=== PATIENT | female | born 1965 | race Caucasian/White ===

== ENCOUNTER 2016-11-26 20:16 | Emergency (ER) | payer MEDICAID ==
[2016-11-26] MEDS ORDERED: AZITHROMYCIN 500 MG TABLET PO ONE (20:35)
[2016-11-26] MEDS ORDERED: PREDNISONE 20 MG TAB PO ONE (20:35)
[2016-11-26] MEDS ORDERED: BENZONATATE 100 MG CAPSULE PO ONE (20:35)
--- NOTE | 2016-11-26 20:42 | Emergency Department Record ---
History of Present Illness - General Chief Complaint: Cough Stated Complaint: COUGH Time Seen by Provider: 11/26/16 20:35 Source: Patient Mode of Arrival: Ambulatory Limitations: No limitations - History of Present Illness Initial Comments: 51 yo female presents with cough and congestion for about 3 weeks. It has been more consistent the last week. She has productive sputum mostly in the mornings. She is a smoker. She has had to use her inhaler more the last week. No NVD. She had a flu shot. PCP is Dr Newman. Complaint: Cough, Nasal congestion Onset/Timin -: Week(s) Quality: Aching Consistency: Constant Improves With: Nothing Worsens With: Other (cough) Context: Sick contacts Associated Symptoms: Cough Treatments Prior to Arrival: Other (Albuterol) - Related Data Previous Rx's Medication Instructions Recorded Azithromycin [Zithromax] 250 mg PO DAILY #4 tab 11/26/16 Benzonatate [Tessalon] 1 cap PO Q8H PRN #20 cap 11/26/16 Prednisone [Prednisone 20Mg] 20 mg PO BID #10 tab 11/26/16 Allergies Allergy/AdvReac Type Severity Reaction Status Date / Time No Known Drug Allergies Allergy Unverified 10/24/16 08:14 Travel Screening - Travel/Exposure Within Last 30 Days Have you traveled within the last 30 days?: No - Travel/Exposure Within Last Year Have you traveled outside the [place] in the last year?: No - Additonal Travel Details Have you been exposed to anyone with a communicable illness?: No - Travel Symptoms Symptom Screening: None Review of Systems Constitutional: Denies: Chills, Fever, Malaise, Weakness Eyes: Denies: Eye discharge ENT: Reports: Congestion Respiratory: Reports: Cough, Wheezes Cardiovascular: Denies: Chest pain, Palpitations, Syncope Endocrine: Denies: Fatigue Gastrointestinal: Denies: Abdominal pain, Diarrhea, Nausea, Vomiting Genitourinary: Denies: Dysuria, Urgency Musculoskeletal: Denies: Arthralgia, Back pain, Myalgia, Neck pain Skin: Denies: Bruising, Change in color, Rash Neurological: Denies: Headache, Weakness Psychiatric: Denies: Anxiety Hematological/Lymphatic: Denies: Easy bleeding, Easy bruising, Swollen glands Past Medical History - SOCIAL HISTORY Smoking Status: Current every day smoker Alcohol Use: None Drug Use: None - RESPIRATORY Hx Respiratory Disorders: Yes Hx Bronchitis: Yes - CARDIOVASCULAR Hx Cardio Disorders: Yes Hx Hypertension: Yes - NEURO Hx Neuro Disorders: Yes Hx Neuropathy: Yes - GI Hx GI Disorders: No - Hx Genitourinary Disorders: No - ENDOCRINE Hx Endocrine Disorders: Yes Hx Diabetes: Yes - MUSCULOSKELETAL Hx Musculoskeletal Disorders: Yes Hx Osteoporosis: Yes - PSYCH Hx Psych Problems: Yes Hx Anxiety: Yes - HEMATOLOGY/ONCOLOGY Hx Hematology/Oncology Disorders: No Family Medical History Any Significant Family History?: No Hx Diabetes: Grandparents Hx Heart Disease: Father, Grandparents Physical Exam - General General Appearance: Alert, Oriented x3, Cooperative, No acute distress Limitations: No limitations - Head Head exam: Normal inspection - Eye Eye exam: Normal appearance, PERRL. negative: Conjunctival injection - ENT ENT exam: Normal exam, Mucous membranes moist Ear exam: Normal external inspection Nasal Exam: Normal inspection. negative: Discharge, Sinus tenderness Mouth exam: Normal external inspection, Tongue normal Teeth exam: Normal inspection. negative: Dental caries Throat exam: Tonsillar erythema. negative: Tonsillomegaly, Tonsillar exudate, R peritonsillar mass, L peritonsillar mass - Neck Neck exam: Normal inspection, Full ROM. negative: Lymphadenopathy, Tenderness - Respiratory Respiratory exam: Rhonchi, Other (Frequent cough). negative: Normal lung sounds bilaterally, Decreased breath sounds, Prolonged expiratory - Cardiovascular Cardiovascular Exam: Regular rate, Normal rhythm, Normal heart sounds Peripheral Pulses: 2+: Radial (R), Radial (L) - GI/Abdominal GI/Abdominal exam: Soft - Rectal Rectal exam: Deferred - exam: Deferred - Extremities Extremities exam: Normal inspection, Full ROM, Normal capillary refill. negative: Pedal edema, Tenderness - Back Back exam: Reports: Normal inspection, Full ROM. Denies: CVA tenderness (R), CVA tenderness (L), Muscle spasm, Rash noted, Tenderness - Neurological Neurological exam: Alert, Normal gait, Oriented X3 - Psychiatric Psychiatric exam: Normal affect, Normal mood. negative: Agitated, Anxious - Skin Skin exam: Dry, Intact, Normal color, Warm Course Vital Signs 11/26/16 20:22 Temperature 97.8 F Pulse Rate [ 115 H Pulse Ox Probe] Respiratory 18 Rate Blood Pressure 165/90 [Left Arm] Pulse Ox 96 - Reevaluation(s) Reevaluation #1: The patient was seen and examined She has a frequent cough with sputum Given she is a smoker with some RAD Prednisone, Zithromax and Tessalon ordered She is in no distress and appears comfortable except for coughing fits occasionally 11/26/16 20:39 11/26/16 20:40 Disposition Disposition: Discharge Clinical Impression: Bronchitis Disposition: Home, Self-Care Condition: (1) Good Instructions: Acute Bronchitis (ED) Additional Instructions: Call your doctor for follow up this week Return if worse or any new concerns Prescriptions: Prednisone [Prednisone 20Mg] 20 mg PO BID #10 tab Benzonatate [Tessalon] 1 cap PO Q8H PRN #20 cap PRN Reason: Cough Azithromycin [Zithromax] 250 mg PO DAILY #4 tab Forms: Patient Portal Access Time of Disposition: 20:42
== END 2016-11-26 20:53 | disposition home or self-care (01) ==
LOC: ER 20:16
DX: J20.9 Acute bronchitis, unspecified (principal); F17.210 Nicotine dependence, cigarettes, uncomplicated
CPT/HCPCS: 99282; J7512

== ENCOUNTER 2016-12-08 15:25 | Emergency (ER) | payer MEDICAID ==
--- NOTE | 2016-12-08 16:25 | Emergency Department Record ---
History of Present Illness - General Chief Complaint: Cough Stated Complaint: COUGH Time Seen by Provider: 12/08/16 16:18 Source: Patient Mode of Arrival: Ambulatory Limitations: No limitations - History of Present Illness Initial Comments: 51 yo female presents with a cough for about 2 weeks. The cough is productive. She has subjective fevers as well. The sputum is brownish to green. She was treated with a Zpack in the last month. She is a 10 cigarette per day smoker. MD Complaint: Cough, Fever Onset/Timin -: Month(s) Consistency: Intermittent Improves With: Cough suppressant Context: Sick contacts Associated Symptoms: Cough, Fever - Related Data Previous Rx's Medication Instructions Recorded Prednisone [Prednisone 20Mg] 20 mg PO BID #10 tab 11/26/16 Azithromycin [Zithromax] 250 mg PO DAILY #4 tab 12/08/16 Benzonatate [Tessalon] 1 cap PO Q8H PRN #20 cap 12/08/16 Allergies Allergy/AdvReac Type Severity Reaction Status Date / Time No Known Drug Allergies Allergy Verified 12/08/16 16:10 Travel Screening - Travel/Exposure Within Last 30 Days Have you traveled within the last 30 days?: No - Travel/Exposure Within Last Year Have you traveled outside the [place] in the last year?: No - Additonal Travel Details Have you been exposed to anyone with a communicable illness?: No - Travel Symptoms Symptom Screening: None Review of Systems Constitutional: Reports: Fever. Denies: Chills, Malaise, Weakness Eyes: Denies: Eye discharge, Eye pain, Photophobia ENT: Reports: Congestion. Denies: Throat pain Respiratory: Reports: Cough. Denies: Hemoptysis, Stridor, Wheezes Cardiovascular: Denies: Chest pain, Palpitations, Syncope Endocrine: Denies: Fatigue Gastrointestinal: Denies: Diarrhea, Vomiting Genitourinary: Denies: Dysuria, Incontinence, Urgency Musculoskeletal: Denies: Arthralgia, Myalgia, Neck pain Skin: Denies: Bruising, Change in color, Rash Neurological: Denies: Headache, Numbness, Weakness Psychiatric: Denies: Anxiety Hematological/Lymphatic: Denies: Blood Clots, Easy bleeding, Easy bruising, Swollen glands Past Medical History - SOCIAL HISTORY Smoking Status: Current every day smoker Alcohol Use: None Drug Use: None - RESPIRATORY Hx Respiratory Disorders: Yes Hx Bronchitis: Yes - CARDIOVASCULAR Hx Cardio Disorders: Yes Hx Hypertension: Yes - NEURO Hx Neuro Disorders: Yes Hx Neuropathy: Yes - GI Hx GI Disorders: No - Hx Genitourinary Disorders: No - ENDOCRINE Hx Endocrine Disorders: Yes Hx Diabetes: Yes - MUSCULOSKELETAL Hx Musculoskeletal Disorders: Yes Hx Osteoporosis: Yes - PSYCH Hx Psych Problems: Yes Hx Anxiety: Yes - HEMATOLOGY/ONCOLOGY Hx Hematology/Oncology Disorders: No Family Medical History Any Significant Family History?: Yes Hx Diabetes: Grandparents Hx Heart Disease: Father, Grandparents Physical Exam - General General Appearance: Alert, Oriented x3, Cooperative, No acute distress Limitations: No limitations - Head Head exam: Normal inspection - Eye Eye exam: Normal appearance, PERRL. negative: Conjunctival injection - ENT ENT exam: Normal exam Ear exam: Normal external inspection Nasal Exam: Normal inspection Mouth exam: Normal external inspection Teeth exam: Normal inspection Throat exam: Normal inspection - Neck Neck exam: Normal inspection, Full ROM. negative: Lymphadenopathy, Tenderness - Respiratory Respiratory exam: Normal lung sounds bilaterally. negative: Respiratory distress - Cardiovascular Cardiovascular Exam: Regular rate, Normal rhythm, Normal heart sounds - GI/Abdominal GI/Abdominal exam: Soft. negative: Tenderness - Rectal Rectal exam: Deferred - exam: Deferred - Extremities Extremities exam: Normal inspection, Full ROM, Normal capillary refill. negative: Tenderness - Back Back exam: Reports: Normal inspection, Full ROM. Denies: Muscle spasm, Rash noted, Tenderness - Neurological Neurological exam: Alert, Normal gait, Oriented X3 - Psychiatric Psychiatric exam: Normal affect, Normal mood - Skin Skin exam: Dry, Intact, Normal color, Warm Course Vital Signs 12/08/16 12/08/16 16:08 16:11 Temperature 97.9 F 97.9 F Pulse Rate 104 H Pulse Rate [ 103 H Pulse Ox Probe] Respiratory 12 12 Rate Blood Pressure 134/88 Blood Pressure 134/88 [Left Arm] Pulse Ox 96 96 - Reevaluation(s) Reevaluation #1: Given the continued sputum production CXR ordered 12/08/16 16:30 Reevaluation #2: The CXR ws reviewed No acute process or change from 201412/08/16 17:22 Disposition Disposition: Discharge Clinical Impression: Bronchitis Disposition: Home, Self-Care Condition: (1) Good Instructions: Acute Bronchitis (ED) Additional Instructions: Call your doctor on Friday for close follow up Return if worse, fever, short of breath or any new concerns Prescriptions: Benzonatate [Tessalon] 1 cap PO Q8H PRN #20 cap PRN Reason: Cough Azithromycin [Zithromax] 250 mg PO DAILY #4 tab Forms: Patient Portal Access Time of Disposition: 17:22
[2016-12-08] MEDS ORDERED: PREDNISONE 20 MG TAB PO ONE (16:26)
[2016-12-08] MEDS ORDERED: AZITHROMYCIN 500 MG TABLET PO ONE (16:26)
[2016-12-08] MEDS ORDERED: BENZONATATE 100 MG CAPSULE PO ONE (16:26)
== END 2016-12-08 17:40 | disposition home or self-care (01) ==
LOC: ER 15:25
DX: J20.9 Acute bronchitis, unspecified (principal); F17.210 Nicotine dependence, cigarettes, uncomplicated
CPT/HCPCS: 71020; J7512; 99283

== ENCOUNTER 2017-04-26 14:15 | Emergency (ER) | payer MEDICAID ==
[2017-04-26] MEDS ORDERED: METHYLPREDNISOLONE PF 125MG/VIAL IVP ONE (15:52)
[2017-04-26] MEDS ORDERED: ALBUTEROL SULFATE (0.083%) 2.5 MG/3 ML NEB INH ONE (15:52)
[2017-04-26] MEDS ORDERED: ONDANSETRON HCL IV 4 MG/2 ML VIAL IVP ONE (15:53)
--- NOTE | 2017-04-26 15:53 | Emergency Department Record ---
History of Present Illness - General Chief Complaint: Difficulty Breathing Stated Complaint: LOC,NAUSEA,DIZZINESS,PRODUCTIVE COUGH,CHEST CONGES Time Seen by Provider: 04/26/17 15:43 Source: Patient Mode of Arrival: Ambulatory - History of Present Illness Initial Comments: The patient has had a thick green productive cough for 3 days at least as well as nausea, vomiting and near syncopal spells when she vomits. She is a smoker and has a history of pneumonia and hypertension. She denies MA, CVA, DM, chol elevation. MD Complaint: Shortness of breath Onset/Timin -: Days(s) Radiation: Back Severity: Mild Consistency: Constant Improves With: Nothing Worsens With: Coughing, Exertion Known History Of: Other Associated Symptoms: Chest pain, Sputum production, Other Treatments Prior to Arrival: None - Related Data Previous Rx's Medication Instructions Recorded Azithromycin [Zithromax] 250 mg PO DAILY #4 tablet 04/26/17 Prednisone [Prednisone 20Mg] 20 mg PO DAILY #20 tab 04/26/17 Allergies Allergy/AdvReac Type Severity Reaction Status Date / Time No Known Drug Allergies Allergy Verified 12/08/16 16:10 Travel Screening - Travel/Exposure Within Last 30 Days Have you traveled within the last 30 days?: No - Travel/Exposure Within Last Year Have you traveled outside the [place] in the last year?: No - Additonal Travel Details Have you been exposed to anyone with a communicable illness?: No - Travel Symptoms Symptom Screening: None Review of Systems Reviewed: No additional complaints except as noted below Constitutional: Reports: As per HPI. Denies: Chills, Fever, Malaise, Night sweats, Weakness, Weight change Eyes: Reports: As per HPI. Denies: Eye discharge, Eye pain, Photophobia, Vision change ENT: Reports: As per HPI. Denies: Congestion, Dental pain, Ear pain, Epistaxis , Hearing loss, Throat pain Respiratory: Reports: As per HPI. Denies: Cough, Dyspnea, Hemoptysis, Stridor, Wheezes Cardiovascular: Reports: As per HPI. Denies: Arrhythmia, Chest pain, Dyspnea on exertion, Edema, Murmurs, Orthopnea, Palpitations, Paroxysmal nocturnal dyspnea, Rheumatic Fever, Syncope Endocrine: Reports: As per HPI. Denies: Fatigue, Heat or cold intolerance, Polydipsia, Polyuria Gastrointestinal: Reports: As per HPI. Denies: Abdominal pain, Constipation, Diarrhea, Hematemesis, Hematochezia, Melena, Nausea, Vomiting Genitourinary: Reports: As per HPI. Denies: Abnormal menses, Discharge, Dyspareunia, Dysuria, Frequency, Hematuria, Incontinence, Retention, Urgency Musculoskeletal: Reports: As per HPI. Denies: Arthralgia, Back pain, Gout, Joint swelling, Myalgia, Neck pain Skin: Reports: As per HPI. Denies: Bruising, Change in color, Change in hair/ nails, Lesions, Pruritus, Rash Neurological: Reports: As per HPI. Denies: Abnormal gait, Confusion, Headache, Numbness, Paresthesias, Seizure, Tingling, Tremors, Vertigo, Weakness Psychiatric: Reports: As per HPI. Denies: Anxiety, Auditory hallucinations, Depression, Homicidal thoughts, Suicidal thoughts, Visual hallucinations Hematological/Lymphatic: Reports: As per HPI. Denies: Anemia, Blood Clots, Easy bleeding, Easy bruising, Swollen glands Past Medical History - SOCIAL HISTORY Smoking Status: Current every day smoker Alcohol Use: None Drug Use: None - RESPIRATORY Hx Respiratory Disorders: Yes Hx Bronchitis: Yes - CARDIOVASCULAR Hx Cardio Disorders: Yes Hx Hypertension: Yes - NEURO Hx Neuro Disorders: Yes Hx Neuropathy: Yes - GI Hx GI Disorders: No - Hx Genitourinary Disorders: No - ENDOCRINE Hx Endocrine Disorders: Yes Hx Diabetes: Yes Hx Thyroid Disease: No - MUSCULOSKELETAL Hx Musculoskeletal Disorders: Yes Hx Osteoporosis: Yes - PSYCH Hx Psych Problems: Yes Hx Anxiety: Yes - HEMATOLOGY/ONCOLOGY Hx Hematology/Oncology Disorders: No Family Medical History Any Significant Family History?: No Hx Diabetes: Grandparents Hx Heart Disease: Father, Grandparents Physical Exam - General General Appearance: Alert, Oriented x3, Cooperative, No acute distress - Head Head exam: Normal inspection - Eye Eye exam: Normal appearance, PERRL Pupils: Normal accommodation - ENT ENT exam: Normal exam, Mucous membranes moist, Normal external ear exam, Normal orophraynx, TM's normal bilaterally Ear exam: Normal external inspection. negative: External canal tenderness Nasal Exam: Normal inspection. negative: Discharge, Sinus tenderness Mouth exam: Normal external inspection, Tongue normal Teeth exam: Normal inspection. negative: Dental caries Throat exam: Normal inspection. negative: Tonsillar erythema, Tonsillar exudate - Neck Neck exam: Normal inspection, Full ROM. negative: Tenderness - Respiratory Respiratory exam: Decreased breath sounds, Prolonged expiratory. negative: Respiratory distress - Cardiovascular Cardiovascular Exam: Normal rhythm, Normal heart sounds, Tachycardia - GI/Abdominal GI/Abdominal exam: Soft, Normal bowel sounds. negative: Tenderness - Rectal Rectal exam: Deferred - exam: Deferred - Extremities Extremities exam: Normal inspection, Full ROM, Normal capillary refill. negative: Calf tenderness, Pedal edema, Tenderness - Back Back exam: Reports: Normal inspection, Full ROM. Denies: Muscle spasm, Rash noted, Tenderness - Neurological Neurological exam: Alert, Normal gait, Oriented X3, Reflexes normal - Psychiatric Psychiatric exam: Normal affect, Normal mood - Skin Skin exam: Dry, Intact, Normal color, Warm Course Vital Signs 04/26/17 15:26 Temperature 98.1 F Pulse Rate [ 99 H Pulse Ox Probe] Respiratory 16 Rate Blood Pressure 148/97 [Left Arm] Pulse Ox 96 Medical Decision Making - Management Options MDM Management: No Additional Work-up Planned - Data Complexity MDM Data: Labs Ordered and/or Reviewed, X-Ray Ordered and/or Reviewed (CXR two view: Negative), EKG Ordered and/or Reviewed - Lab Data Result diagrams: 04/26/17 15:52 04/26/17 15:52 - EKG Data -: EKG Interpreted by Me EKG: No Acute Changes (no prior for comparison) - Radiology Data -: Radiology Exam Interpreted by Myself (Negative) Disposition Disposition: Discharge Clinical Impression: Bronchitis COPD (chronic obstructive pulmonary disease) Qualifiers: COPD type: emphysema Emphysema type: unspecified Qualified Code(s): J43.9 - Emphysema, unspecified Disposition: Home, Self-Care Condition: (1) Good Instructions: Dyspnea (ED) Additional Instructions: Take antibiotics until gone. Albuterol Inhaler as instructed. Prednisone taper as directed. Discontinue smoking completely and permanently. Follow up with PCP next week to 10 days. Prescriptions: Azithromycin [Zithromax] 250 mg PO DAILY #4 tablet Prednisone [Prednisone 20Mg] 20 mg PO DAILY #20 tab Quality - Quality Measures Quality Measures: N/A - Blood Pressure Screening Blood Pressure Classification: Hypertensive Reading Systolic Measurement: 148 Diastolic Measurement: 97 Screening for High Blood Pressure: < First Hypertensive BP, F/U Documented > [ G8950] First Hypertensive Follow-up Interventions: Referral to alternative/primary care provider.
[2017-04-26 16:05] LABS: BASO % 0.4 % (0-6); EOS % 1.6 % (0-6); GRAN % 46.3 % (47-80); HEMATOCRIT 43.7 % (35.0-47.0); HEMOGLOBIN 14.4 gm/dl (11.6-16.0); LYMPH % 43.3 % (16-45); MEAN CELL VOLUME 88.3 fl (81-97); MEAN CORPUSCULAR HEMOGLOBIN 29.1 pg (27-33); MEAN PLATELET VOLUME 9.4 fl (7.4-10.4); MONO % 8.4 % (0-9); PLATELET COUNT 445 K/uL (130-400); RED BLOOD COUNT 4.95 M/uL (3.80-5.40); RED CELL DISTRIBUTION WIDTH 14.2 % (11.5-14.5); WHITE BLOOD COUNT W/O DIFF 9.4 K/uL (4.2-12.2)
[2017-04-26 16:16] LABS: ANION GAP 13.6 (7-16); BLOOD UREA NITROGEN 19 mg/dL (7-17); CARBON DIOXIDE 28.4 mmol/L (22-30); CREATININE 0.6 mg/dL (0.52-1.04); EST GLOMERULAR FILTRATION RATE > 60 ml/min; GLUCOSE,RANDOM 160 mg/dL (70-110)
[2017-04-26 16:29] LABS: TROPONIN I < 0.012 ng/mL (0.00-0.034)
[2017-04-26 17:24] LABS: URINE APPEARANCE CLEAR; URINE BILIRUBIN NEGATIVE (NEGATIVE); URINE BLOOD NEGATIVE (NEGATIVE); URINE COLOR YELLOW; URINE GLUCOSE (UA) NEGATIVE (NEGATIVE); URINE KETONE NEGATIVE (NEGATIVE); URINE LEUKOCYTE ESTERASE NEGATIVE (NEGATIVE); URINE NITRITE NEGATIVE (NEGATIVE); URINE PROTEIN NEGATIVE (NEGATIVE); URINE UROBILINOGEN 0.2 E.U./dL (0.20 - 1.00)
[2017-04-26] MEDS ORDERED: AZITHROMYCIN 500 MG TABLET PO ONE (17:37)
[2017-04-26] MEDS ORDERED: CEFTRIAXONE SODIUM 2 GM in 0.9 % SODIUM CHLORIDE 100ML 100 ML IVPB ONE (17:37)
--- NOTE | 2017-04-28 14:25 | RADIOLOGY REPORT ---
EXAM: CHEST, TWO VIEWS HISTORY: PATIENT HAS CHEST TIGHTNESS, GREEN MUCOUS PRODUCTION. TECHNIQUE: Two views of the chest were provided along with the comparison study dated 12/08/16. FINDINGS: The cardiomediastinal silhouette is within normal limits for size and contour. The jeanie appear unremarkable. There is no radiographic evidence of a focal infiltrate or pleural effusion. Degenerative changes of the lower thoracic spine are noted. IMPRESSION: STABLE RADIOGRAPHIC APPEARANCE OF THE CHEST WITH RESPECT TO THE PRIOR EXAMINATION. JOB NUMBER: [id number] MTDD
== END 2017-04-26 18:45 | disposition home or self-care (01) ==
LOC: ER 14:15
DX: J20.9 Acute bronchitis, unspecified (principal); J43.9 Emphysema, unspecified; R07.89 Other chest pain; R11.2 Nausea with vomiting, unspecified; R06.02 Shortness of breath; I10 Essential (primary) hypertension; E11.9 Type 2 diabetes mellitus without complications; Z87.891 Personal history of nicotine dependence
CPT/HCPCS: 99284 ×2; 96365; 96375; 85025; 84484; 80048; 81003; 85379; 83880; 71020; 94640; 93005; 93010; J2405; J2930; J7613

== ENCOUNTER 2017-07-24 06:59 | Emergency (ER) | payer MEDICAID ==
--- NOTE | 2017-07-24 07:13 | Emergency Department Record ---
History of Present Illness - General Chief Complaint: Cough Stated Complaint: COUGH Time Seen by Provider: 07/24/17 07:03 Source: Patient Mode of Arrival: Ambulatory Limitations: No limitations - History of Present Illness Initial Comments: 52 yo female presents with cough with green sputum. She has also had green nasal drainage with pressure in the face area. No fevers. No nausea, vomiting or diarrhea. She does have a history of COPD and is a smoker. No chest pain. PCP the [facility]. MD Complaint: Cough, Nasal congestion -: Week(s) Severity: Moderate Quality: Aching Consistency: Constant Improves With: Nothing Worsens With: Nothing Context: Sick contacts Associated Symptoms: Cough Treatments Prior to Arrival: "Cold medicine" - Related Data Previous Rx's Medication Instructions Recorded Albuterol Sulfate [Proair Hfa] 1 - 2 puff IH .EVERY 4-6 HOURS PRN 07/24/17 #1 inhaler Azithromycin [Zithromax] 250 mg PO DAILY #6 tablet 07/24/17 Fluticasone Propionate [Flonase] 2 spray EACH NARES DAILY #1 bottle 07/24/17 Prednisone [Prednisone 20Mg] 20 mg PO BID #10 tab 07/24/17 Allergies Allergy/AdvReac Type Severity Reaction Status Date / Time No Known Drug Allergies Allergy Verified 12/08/16 16:10 Review of Systems Constitutional: Denies: Chills, Fever, Malaise, Weakness Eyes: Denies: Eye discharge, Photophobia, Vision change ENT: Reports: Congestion, Throat pain. Denies: Ear pain, Epistaxis Respiratory: Reports: Cough, Wheezes. Denies: Dyspnea, Hemoptysis, Stridor Cardiovascular: Denies: Chest pain, Palpitations, Syncope Endocrine: Denies: Fatigue Gastrointestinal: Denies: Abdominal pain, Diarrhea, Nausea, Vomiting Genitourinary: Reports: Incontinence (with cough). Denies: Dysuria, Frequency, Hematuria, Urgency Musculoskeletal: Denies: Arthralgia, Back pain Skin: Denies: Bruising, Change in color, Rash Neurological: Reports: Headache (facial pain). Denies: Numbness, Weakness Psychiatric: Denies: Anxiety Hematological/Lymphatic: Denies: Blood Clots, Easy bleeding, Easy bruising, Swollen glands Past Medical History - SOCIAL HISTORY Smoking Status: Current every day smoker Drug Use: None - RESPIRATORY Hx Respiratory Disorders: Yes Hx Bronchitis: Yes - CARDIOVASCULAR Hx Cardio Disorders: Yes Hx Hypertension: Yes - NEURO Hx Neuro Disorders: Yes Hx Neuropathy: Yes - GI Hx GI Disorders: No - Hx Genitourinary Disorders: No - ENDOCRINE Hx Endocrine Disorders: Yes Hx Diabetes: Yes Hx Thyroid Disease: No - MUSCULOSKELETAL Hx Musculoskeletal Disorders: Yes Hx Osteoporosis: Yes - PSYCH Hx Psych Problems: Yes Hx Anxiety: Yes - HEMATOLOGY/ONCOLOGY Hx Hematology/Oncology Disorders: No Family Medical History Hx Diabetes: Grandparents Hx Heart Disease: Father, Grandparents Physical Exam - General General Appearance: Alert, Oriented x3, Cooperative, No acute distress Limitations: No limitations - Head Head exam: Atraumatic, Normocephalic, Normal inspection - Eye Eye exam: Normal appearance. negative: Conjunctival injection, Periorbital swelling - ENT ENT exam: Normal exam, Normal orophraynx, TM's normal bilaterally Ear exam: Normal external inspection. negative: External canal tenderness Nasal Exam: Discharge, Sinus tenderness. negative: Dried blood Mouth exam: Normal external inspection, Tongue normal Teeth exam: Normal inspection. negative: Dental caries Throat exam: Normal inspection. negative: Tonsillar erythema, Tonsillomegaly, Tonsillar exudate, R peritonsillar mass, L peritonsillar mass - Neck Neck exam: Normal inspection, Full ROM. negative: Tenderness - Respiratory Respiratory exam: Normal lung sounds bilaterally. negative: Accessory muscle use, Decreased breath sounds, Prolonged expiratory, Respiratory distress, Rhonchi, Stridor, Wheezes - Cardiovascular Cardiovascular Exam: Regular rate, Normal rhythm, Normal heart sounds Peripheral Pulses: 2+: Radial (R), Radial (L) - GI/Abdominal GI/Abdominal exam: Soft. negative: Tenderness - Rectal Rectal exam: Deferred - exam: Deferred - Extremities Extremities exam: Normal inspection, Full ROM, Normal capillary refill. negative: Tenderness - Back Back exam: Reports: Normal inspection, Full ROM. Denies: CVA tenderness (R), CVA tenderness (L), Muscle spasm, Rash noted, Tenderness - Neurological Neurological exam: Alert, Normal gait, Oriented X3 - Psychiatric Psychiatric exam: Normal affect, Normal mood - Skin Skin exam: Dry, Intact, Normal color, Warm Course Vital Signs 07/24/17 07:04 Temperature 97.9 F Pulse Rate [ 100 H Pulse Ox Probe] Respiratory 20 Rate Blood Pressure 151/108 [Left Arm] Pulse Ox 97 Disposition Disposition: Discharge Clinical Impression: COPD (chronic obstructive pulmonary disease) Qualifiers: COPD type: unspecified COPD Qualified Code(s): J44.9 - Chronic obstructive pulmonary disease, unspecified Disposition: Home, Self-Care Condition: (1) Good Instructions: COPD (Chronic Obstructive Pulmonary Disease) (ED), Sinusitis (ED) Additional Instructions: Call your doctor for close follow up Return if worse, or any new symptoms or concerns Prescriptions: Albuterol Sulfate [Proair Hfa] 1 - 2 puff IH .EVERY 4-6 HOURS PRN #1 inhaler PRN Reason: Difficulty In Breathing Azithromycin [Zithromax] 250 mg PO DAILY #6 tablet Fluticasone Propionate [Flonase] 2 spray EACH NARES DAILY #1 bottle Prednisone [Prednisone 20Mg] 20 mg PO BID #10 tab Forms: Patient Portal Access Time of Disposition: 07:11 Quality - Quality Measures Quality Measures: N/A - Blood Pressure Screening Does Patient Have Any of the Following: No Blood Pressure Classification: Hypertensive Reading Systolic Measurement: 151 Diastolic Measurement: 108 Screening for High Blood Pressure: < Pre-Hypertensive BP, F/U Documented > [ G8950] Pre-Hypertensive Follow-up Interventions: Referral to alternative/primary care provider.
== END 2017-07-24 07:24 | disposition home or self-care (01) ==
LOC: ER 06:59
DX: J44.9 Chronic obstructive pulmonary disease, unspecified (principal); F17.210 Nicotine dependence, cigarettes, uncomplicated
CPT/HCPCS: 99282

== ENCOUNTER 2017-07-29 20:12 | Emergency (ER) | payer MEDICAID ==
--- NOTE | 2017-07-29 21:32 | Emergency Department Record ---
History of Present Illness - General Chief Complaint: Cough Stated Complaint: CHEST COLD COUGH Time Seen by Provider: 07/29/17 21:29 Source: Patient Mode of Arrival: Ambulatory Limitations: No limitations - History of Present Illness Initial Comments: 52 yo female presents to ED for evaluation of continued cough and congestion symptoms. Patient denies fevers, chills, nausea, or vomiting symptoms. Patient reports that she was seen in the ED 1 week ago, treated with Prednisone , Zithromax, and Flonase for her symptoms that have not improved. Patient does report history of COPD. MD Complaint: Cough Onset/Timin -: Awoke with symptoms Quality: Aching Consistency: Constant Improves With: Nothing Worsens With: Nothing Associated Symptoms: Cough Treatments Prior to Arrival: Antibiotics - Related Data Previous Rx's Medication Instructions Recorded Albuterol Sulfate [Proair Hfa] 1 - 2 puff IH .EVERY 4-6 HOURS PRN 07/24/17 #1 inhaler Azithromycin [Zithromax] 250 mg PO DAILY #6 tablet 07/24/17 Fluticasone Propionate [Flonase] 2 spray EACH NARES DAILY #1 bottle 07/24/17 Prednisone [Prednisone 20Mg] 20 mg PO BID #10 tab 07/24/17 Benzonatate [Tessalon] 2 cap PO Q8H PRN #30 cap 07/29/17 Prednisone [Prednisone 20Mg] 20 mg PO BID #15 tab 07/29/17 Allergies Allergy/AdvReac Type Severity Reaction Status Date / Time No Known Drug Allergies Allergy Verified 12/08/16 16:10 Travel Screening - Travel/Exposure Within Last 30 Days Have you traveled within the last 30 days?: No - Travel/Exposure Within Last Year Have you traveled outside the [place] in the last year?: No - Additonal Travel Details Have you been exposed to anyone with a communicable illness?: No - Travel Symptoms Symptom Screening: None Review of Systems Constitutional: Denies: Chills, Fever, Malaise, Night sweats Eyes: Denies: Eye discharge, Eye pain ENT: Denies: Congestion, Ear pain, Epistaxis Respiratory: Reports: Cough, Wheezes. Denies: Dyspnea, Hemoptysis Cardiovascular: Denies: Chest pain, Dyspnea on exertion Endocrine: Denies: Fatigue, Heat or cold intolerance Gastrointestinal: Denies: Abdominal pain, Nausea, Vomiting Genitourinary: Denies: Incontinence, Retention Musculoskeletal: Denies: Arthralgia, Back pain Skin: Denies: Bruising, Change in color Neurological: Denies: Abnormal gait, Confusion, Headache, Seizure Psychiatric: Denies: Anxiety Hematological/Lymphatic: Denies: Anemia, Blood Clots Past Medical History - SOCIAL HISTORY Smoking Status: Current every day smoker Alcohol Use: None Drug Use: None - RESPIRATORY Hx Respiratory Disorders: Yes Hx Bronchitis: Yes - CARDIOVASCULAR Hx Cardio Disorders: Yes Hx Hypertension: Yes - NEURO Hx Neuro Disorders: Yes Hx Neuropathy: Yes - GI Hx GI Disorders: No - Hx Genitourinary Disorders: No - ENDOCRINE Hx Endocrine Disorders: Yes Hx Diabetes: Yes Hx Thyroid Disease: No - MUSCULOSKELETAL Hx Musculoskeletal Disorders: Yes Hx Osteoporosis: Yes - PSYCH Hx Psych Problems: Yes Hx Anxiety: Yes - HEMATOLOGY/ONCOLOGY Hx Hematology/Oncology Disorders: No Family Medical History Any Significant Family History?: No Hx Diabetes: Grandparents Hx Heart Disease: Father, Grandparents Physical Exam - General General Appearance: Alert, Oriented x3, Cooperative, Mild distress, Other ( Patient has non-productive cough symptoms on examination) Limitations: No limitations - Head Head exam: Atraumatic, Normocephalic, Normal inspection Head exam detail: negative: Abrasion, Contusion, Barrera's sign, General tenderness, Hematoma, Laceration - Eye Eye exam: Normal appearance. negative: Conjunctival injection, Periorbital swelling, Periorbital tenderness, Scleral icterus - ENT Ear exam: negative: Auricular hematoma, Auricular trauma Nasal Exam: negative: Active bleeding, Discharge, Dried blood, Foreign body Mouth exam: negative: Drooling, Laceration, Muffled voice, Tongue elevation - Neck Neck exam: Normal inspection. negative: Meningismus, Tenderness - Respiratory Respiratory exam: Normal lung sounds bilaterally. negative: Rales, Respiratory distress, Rhonchi, Stridor, Wheezes - Cardiovascular Cardiovascular Exam: Regular rate, Normal rhythm, Normal heart sounds - GI/Abdominal GI/Abdominal exam: Soft. negative: Rebound, Rigid, Tenderness - Rectal Rectal exam: Deferred - exam: Deferred - Extremities Extremities exam: Normal inspection. negative: Calf tenderness, Pedal edema, Tenderness - Back Back exam: Denies: CVA tenderness (R), CVA tenderness (L) - Neurological Neurological exam: Alert, Normal gait, Oriented X3 - Psychiatric Psychiatric exam: Normal affect, Normal mood - Skin Skin exam: Normal color. negative: Abrasion Type of lesion: negative: abrasion Course Vital Signs 07/29/17 21:20 Temperature 98.1 F Pulse Rate [ 92 H Pulse Ox Probe] Respiratory 24 Rate Blood Pressure 168/89 [Left Arm] Pulse Ox 95 - Reevaluation(s) Reevaluation #1: 07/29/17 21:36 Symptoms appear c/w bronchitis, will continue her prednisone for 10 days with taper and add tessalon for her cough symptoms. Repeat antibiotics do not appear indicated at this time. Patient is otherwise well appearing and stable for discharge at this time. Disposition Disposition: Discharge Clinical Impression: Bronchitis Disposition: Home, Self-Care Condition: (2) Stable Instructions: Chronic Bronchitis (ED) Additional Instructions: Return to ED if your symptoms worsen or if you have any concerns. Prednisone and Tessalon as directed. Follow-up with your family doctor in 3-5 days as directed. Prescriptions: Benzonatate [Tessalon] 2 cap PO Q8H PRN #30 cap PRN Reason: Cough Prednisone [Prednisone 20Mg] 20 mg PO BID #15 tab Forms: Patient Portal Access Time of Disposition: 21:31 Quality - Quality Measures Quality Measures: N/A - Blood Pressure Screening Does Patient Have Any of the Following: Active Dx of HTN Blood Pressure Classification: Pre-Hypertensive BP Reading Systolic Measurement: 168 Diastolic Measurement: 89 Screening for High Blood Pressure: Patient Exclusion, Hx of HTN [G9744]
[2017-07-29] MEDS ORDERED: BENZONATATE 100 MG CAPSULE PO ONE (21:34)
[2017-07-29] MEDS ORDERED: PREDNISONE 20 MG TAB PO ONE (21:34)
== END 2017-07-29 21:42 | disposition home or self-care (01) ==
LOC: ER 20:12
DX: J20.9 Acute bronchitis, unspecified (principal); F17.210 Nicotine dependence, cigarettes, uncomplicated
CPT/HCPCS: 99282; J7512

== ENCOUNTER 2017-08-09 15:18 | Emergency (ER) | payer SELFPAY ==
--- NOTE | 2017-08-09 17:13 | Emergency Department Record ---
History of Present Illness - General Chief complaint: Pain Stated complaint: RT RIB PAIN Time Seen by Provider: 08/09/17 17:06 Source: Patient, RN notes reviewed Mode of Arrival: Ambulatory - History of Present Illness Initial comments: cough and not getting better and she was on a course of antibiotics and prednison and she has pain with coughing the pain is reproducible on palpation. sick for three weeks Onset/Timin -: Week(s) Location: Right, Other Severity scale (1-10): 8 Quality: Sharp Consistency: Constant Improves with: Nothing Worsens with: Other - Related Data Previous Rx's Medication Instructions Recorded Albuterol Sulfate [Proair Hfa] 1 - 2 puff IH .EVERY 4-6 HOURS PRN 07/24/17 #1 inhaler Fluticasone Propionate [Flonase] 2 spray EACH NARES DAILY #1 bottle 07/24/17 Prednisone [Prednisone 20Mg] 20 mg PO BID #10 tab 07/24/17 Prednisone [Prednisone 20Mg] 20 mg PO BID #15 tab 07/29/17 Acetaminop W/ Codeine 300/30Mg 1 tab PO Q6H #20 tab 08/09/17 [Tylenol #3] Amoxicillin 500Mg Capsule [Amoxil] 500 mg PO TID #30 tab 08/09/17 Allergies Allergy/AdvReac Type Severity Reaction Status Date / Time No Known Drug Allergies Allergy Verified 12/08/16 16:10 Travel Screening - Travel/Exposure Within Last 30 Days Have you traveled within the last 30 days?: No - Travel/Exposure Within Last Year Have you traveled outside the [place] in the last year?: No - Additonal Travel Details Have you been exposed to anyone with a communicable illness?: No - Travel Symptoms Symptom Screening: None Review of Systems Reviewed: No additional complaints except as noted below Constitutional: Reports: As per HPI. Denies: Chills, Fever, Malaise, Night sweats, Weakness, Weight change Eyes: Reports: As per HPI. Denies: Eye discharge, Eye pain, Photophobia, Vision change ENT: Reports: As per HPI. Denies: Congestion, Dental pain, Ear pain, Epistaxis , Hearing loss, Throat pain Respiratory: Reports: As per HPI, Cough. Denies: Dyspnea, Hemoptysis, Stridor, Wheezes Cardiovascular: Reports: As per HPI. Denies: Arrhythmia, Chest pain, Dyspnea on exertion, Edema, Murmurs, Orthopnea, Palpitations, Paroxysmal nocturnal dyspnea, Rheumatic Fever, Syncope Endocrine: Reports: As per HPI. Denies: Fatigue, Heat or cold intolerance, Polydipsia, Polyuria Gastrointestinal: Reports: As per HPI. Denies: Abdominal pain, Constipation, Diarrhea, Hematemesis, Hematochezia, Melena, Nausea, Vomiting Genitourinary: Reports: As per HPI. Denies: Abnormal menses, Discharge, Dyspareunia, Dysuria, Frequency, Hematuria, Incontinence, Retention, Urgency Musculoskeletal: Reports: As per HPI. Denies: Arthralgia, Back pain, Gout, Joint swelling, Myalgia, Neck pain Skin: Reports: As per HPI. Denies: Bruising, Change in color, Change in hair/ nails, Lesions, Pruritus, Rash Neurological: Reports: As per HPI. Denies: Abnormal gait, Confusion, Headache, Numbness, Paresthesias, Seizure, Tingling, Tremors, Vertigo, Weakness Psychiatric: Reports: As per HPI. Denies: Anxiety, Auditory hallucinations, Depression, Homicidal thoughts, Suicidal thoughts, Visual hallucinations Hematological/Lymphatic: Reports: As per HPI. Denies: Anemia, Blood Clots, Easy bleeding, Easy bruising, Swollen glands Past Medical History - SOCIAL HISTORY Smoking Status: Current every day smoker Alcohol Use: None Drug Use: None - RESPIRATORY Hx Respiratory Disorders: Yes Hx Bronchitis: Yes - CARDIOVASCULAR Hx Cardio Disorders: Yes Hx Hypertension: Yes - NEURO Hx Neuro Disorders: Yes Hx Neuropathy: Yes - GI Hx GI Disorders: No - Hx Genitourinary Disorders: No - ENDOCRINE Hx Endocrine Disorders: Yes Hx Diabetes: Yes Hx Thyroid Disease: No - MUSCULOSKELETAL Hx Musculoskeletal Disorders: Yes Hx Osteoporosis: Yes - PSYCH Hx Psych Problems: Yes Hx Anxiety: Yes - HEMATOLOGY/ONCOLOGY Hx Hematology/Oncology Disorders: No Family Medical History Any Significant Family History?: No Hx Diabetes: Grandparents Hx Heart Disease: Father, Grandparents Physical Exam - General General Appearance: Alert, Oriented x3, Cooperative, No acute distress - Head Head exam: Normal inspection - Eye Eye exam: Normal appearance, PERRL Pupils: Normal accommodation - ENT ENT exam: Normal exam, Mucous membranes moist, Normal external ear exam, Normal orophraynx, TM's normal bilaterally Ear exam: Normal external inspection. negative: External canal tenderness Nasal Exam: Normal inspection. negative: Discharge, Sinus tenderness Mouth exam: Normal external inspection, Tongue normal Teeth exam: Normal inspection. negative: Dental caries Throat exam: Normal inspection. negative: Tonsillar erythema, Tonsillar exudate - Neck Neck exam: Normal inspection, Full ROM. negative: Tenderness - Respiratory Respiratory exam: Normal lung sounds bilaterally. negative: Respiratory distress - Cardiovascular Cardiovascular Exam: Regular rate, Normal rhythm, Normal heart sounds - GI/Abdominal GI/Abdominal exam: Soft, Normal bowel sounds. negative: Tenderness - Rectal Rectal exam: Deferred - exam: Deferred - Extremities Extremities exam: Normal inspection, Full ROM, Normal capillary refill. negative: Tenderness - Back Back exam: Reports: Normal inspection, Full ROM. Denies: Muscle spasm, Rash noted, Tenderness - Neurological Neurological exam: Alert, Normal gait, Oriented X3, Reflexes normal - Psychiatric Psychiatric exam: Normal affect, Normal mood - Skin Skin exam: Dry, Intact, Normal color, Warm Course Vital Signs 08/09/17 15:30 Temperature 98.1 F Pulse Rate 105 H Respiratory 16 Rate Blood Pressure 129/96 Pulse Ox 98 Disposition Clinical Impression: COPD (chronic obstructive pulmonary disease) Qualifiers: COPD type: COPD with acute exacerbation Qualified Code(s): J44.1 - Chronic obstructive pulmonary disease with (acute) exacerbation Disposition: Home, Self-Care Condition: (1) Good Instructions: Acute Bronchitis (ED) Additional Instructions: follow up with Dr. Jackson in 4 days Prescriptions: Acetaminop W/ Codeine 300/30Mg [Tylenol #3] 1 tab PO Q6H #20 tab Amoxicillin 500Mg Capsule [Amoxil] 500 mg PO TID #30 tab Forms: Patient Portal Access Time of Disposition: 18:09 Quality - Quality Measures Quality Measures: N/A - Blood Pressure Screening Does Patient Have Any of the Following: No Blood Pressure Classification: Hypertensive Reading Systolic Measurement: 129 Diastolic Measurement: 96 Screening for High Blood Pressure: Patient Exclusion, Hx of HTN [G9744]
[2017-08-09] MEDS: AMOXICILLIN 500MG CAPSULE PO ONE (18:18)
[2017-08-09] MEDS: ACETAMINOPHEN W/ CODEINE 300MG/30MG TABLET PO ONE (18:18)
--- NOTE | 2017-08-10 12:18 | RADIOLOGY REPORT ---
EXAM: CHEST 2 VIEWS HISTORY: DIFFICULTY IN BREATHING. TECHNIQUE: Frontal and lateral views of the chest were performed. FINDINGS: Heart size is normal. Lungs martinez are clear. Osseous structures are normal. There is post-op surgical change in the right shoulder girdle. IMPRESSION: NO ACUTE PULMONARY DISEASE PROCESS. JOB NUMBER: [id number] MTDD
== END 2017-08-09 18:22 | disposition home or self-care (01) ==
LOC: ER 15:18
DX: J44.1 Chronic obstructive pulmonary disease with (acute) exacerbation (principal); R06.00 Dyspnea, unspecified; I10 Essential (primary) hypertension; F17.210 Nicotine dependence, cigarettes, uncomplicated
CPT/HCPCS: 71020; 99283

== ENCOUNTER 2018-12-11 12:45 | Emergency (ER) | payer MEDICAID, OTHER ==
--- NOTE | 2018-12-11 12:53 | Emergency Department Record ---
History of Present Illness - General Stated Complaint: SYNCOPY Time Seen by Provider: 12/11/18 12:46 Source: Patient, EMS Mode of Arrival: Ambulatory Limitations: No limitations - History of Present Illness Initial Comments: 53 yo female presents from the [address] [facility] after three syncopal episodes. No history of syncope or CAD in the past. She became hot and flushed and had witnessed syncope. She was at the salon for tanning. She had a normal morning prior to. She has not been ill recently. EMS was on scene and reported an initial HR in the 80's but did record HR in the 40's that appeared not have any P waves. No chest pain, headache, cough or shortness of breath. No leg pain. No edema. No recent illness. No active chronic medical condition. She has hypertension, DM and smokes. Prehospital accu check 225 EMS witnessed syncope with HR around 40 that appeared junctional MD Complaint: Loss of consciousness -: Minutes(s) Prodromal Symptoms: Diaphoresis, Lightheaded, Nausea/vomiting -: Second(s) Witnessed: Yes - by bystander Current Symptoms: Lightheaded Treatments Prior to Arrival: None - [place] Coma Scale Eye Response: (4) Open spontaneously Motor Response: (6) Obeys commands Verbal Response: (5) Oriented Chloe Total: 15 - Related Data Home Medications Medication Instructions Recorded Confirmed Last Taken Semaglutide [Ozempic] 0.25 mg SQ WEEKLY 12/11/18 12/11/18 12/09/18 Previous Rx's Medication Instructions Recorded Albuterol Sulfate [Proair Hfa] 1 - 2 puff IH .EVERY 4-6 HOURS PRN 07/24/17 #1 inhaler Allergies Allergy/AdvReac Type Severity Reaction Status Date / Time No Known Drug Allergies Allergy Verified 12/11/18 12:58 Review of Systems Constitutional: Reports: Weakness. Denies: Chills, Fever Eyes: Denies: Eye discharge, Eye pain, Photophobia, Vision change ENT: Denies: Congestion, Throat pain Respiratory: Denies: Cough, Dyspnea, Hemoptysis, Stridor, Wheezes Cardiovascular: Reports: Syncope Endocrine: Reports: Fatigue Gastrointestinal: Reports: Nausea, Vomiting. Denies: Diarrhea Genitourinary: Denies: Dysuria, Urgency Musculoskeletal: Denies: Arthralgia, Back pain, Joint swelling, Myalgia Skin: Denies: Bruising, Change in color, Rash Neurological: Denies: Headache Psychiatric: Denies: Anxiety Hematological/Lymphatic: Denies: Blood Clots, Easy bleeding, Easy bruising, Swollen glands Past Medical History - SOCIAL HISTORY Smoking Status: Current every day smoker Drug Use: None - RESPIRATORY Hx Respiratory Disorders: Yes Hx Bronchitis: Yes - CARDIOVASCULAR Hx Cardio Disorders: Yes Hx Hypertension: Yes - NEURO Hx Neuro Disorders: Yes Hx Neuropathy: Yes - GI Hx GI Disorders: No - Hx Genitourinary Disorders: No - ENDOCRINE Hx Endocrine Disorders: Yes Hx Diabetes: Yes Hx Thyroid Disease: No - MUSCULOSKELETAL Hx Musculoskeletal Disorders: Yes Hx Osteoporosis: Yes - PSYCH Hx Psych Problems: Yes Hx Anxiety: Yes - HEMATOLOGY/ONCOLOGY Hx Hematology/Oncology Disorders: No Family Medical History Hx Diabetes: Grandparents Hx Heart Disease: Father, Grandparents Physical Exam - General General Appearance: Alert, Oriented x3, Cooperative, No acute distress Limitations: No limitations - Head Head exam: Atraumatic, Normal inspection - Eye Eye exam: Normal appearance, PERRL. negative: Conjunctival injection, Scleral icterus - ENT ENT exam: Normal exam Ear exam: Normal external inspection Nasal Exam: Normal inspection Mouth exam: Normal external inspection - Neck Neck exam: Normal inspection, Full ROM. negative: Tenderness - Respiratory Respiratory exam: Normal lung sounds bilaterally. negative: Respiratory distress - Cardiovascular Cardiovascular Exam: Regular rate, Normal rhythm, Normal heart sounds - GI/Abdominal GI/Abdominal exam: Soft. negative: Tenderness - Rectal Rectal exam: Deferred - exam: Deferred - Extremities Extremities exam: Normal inspection. negative: Pedal edema, Tenderness - Back Back exam: Denies: CVA tenderness (R), CVA tenderness (L) - Neurological Neurological exam: Alert, Oriented X3 - Psychiatric Psychiatric exam: Normal affect, Normal mood - Skin Skin exam: Dry, Intact, Normal color, Warm Course - Reevaluation(s) Reevaluation #1: EKG #1: 12:44 Rate: 88 Rhythm: sinus [place]: L Intervals: normal ST segments: normal Prior: 04/26/17 Accu check pre hospital 225 12/11/18 12:51 12/11/18 12:57 EMS rhythm strip demonstrates bradycardia to mid 40's without P waves The Inseminator confirms this was when she had syncope 12/11/18 13:11 No acute changes on the CBC 12/11/18 13:21 K 3.8 Mg 1.9 12/11/18 13:33 Troponin is normal 12/11/18 13:41 The case was discussed with Dr Oneal. He recommends [place] [facility] [place]. Medical Decision Making - Lab Data Result diagrams: 12/11/18 12:39 12/11/18 12:39 Disposition Disposition: Transfer Clinical Impression: Syncope, Bradycardia Disposition: Acute Care Hospital Transfer [place] [facility] [place] For Transfer: syncope bradycardia Accepting Physician: Kings Time Discussed w/Accepting Physician: 13:51 Condition: (2) Stable Time of Disposition: 13:34 Quality - Quality Measures Quality Measures: N/A - Blood Pressure Screening Does Patient Have Any of the Following: Active Dx of HTN Blood Pressure Classification: Normal BP Reading Systolic Measurement: 81 Diastolic Measurement: 59 Screening for High Blood Pressure: Patient Exclusion, Hx of HTN [G9744]
[2018-12-11] MEDS ORDERED: 0.9 % SODIUM CHLORIDE 1,000 ML BAG IV ONE (12:58)
[2018-12-11 13:03] LABS: BASO % 0.4 % (0-6); EOS % 2.3 % (0-6); GRAN % 42.6 % (47-80); HEMATOCRIT 47.4 % (35.0-47.0); HEMOGLOBIN 15.8 gm/dl (11.6-16.0); MEAN CELL VOLUME 86.7 fl (81-97); MEAN CORPUSCULAR HGB CONC 33.3 g/dl (32-36); MEAN PLATELET VOLUME 9.7 fl (7.4-10.4); MONO % 5.7 % (0-9); PLATELET COUNT 523 K/uL (130-400); RED BLOOD COUNT 5.47 M/uL (3.80-5.40); RED CELL DISTRIBUTION WIDTH 14.1 % (11.5-14.5); WHITE BLOOD COUNT W/O DIFF 11.3 K/uL (4.2-12.2)
[2018-12-11 13:05] LABS: MEAN CORPUSCULAR HEMOGLOBIN 28.8 pg (27-33)
[2018-12-11 13:12] LABS: PARTIAL THROMBOPLASTIN TIME 23.7 SECONDS (24.5-39.1); PROTHROMBIN TIME (PATIENT) 10.3 SECONDS (9.5-12.1)
[2018-12-11 13:13] LABS: BLOOD UREA NITROGEN 13 mg/dL (6-20); CREATININE 0.7 mg/dL (0.5-0.9); EST GLOMERULAR FILTRATION RATE > 60 mL/min
[2018-12-11 13:14] LABS: TOTAL PROTEIN 7.5 g/dL (6.6-8.7)
[2018-12-11 13:16] LABS: GLUCOSE,RANDOM 238 mg/dL (74-109)
[2018-12-11 13:18] LABS: ALT/SGPT 25 U/L (<33)
[2018-12-11 13:19] LABS: ALB/GLOB RATIO 1.5 (1.1-1.8); ALBUMIN 4.5 g/dL (4.0-5.0); ALKALINE PHOSPHATASE 96 U/L (35-104); AST/SGOT 15 U/L (10.0-35.0)
[2018-12-11] MEDS ORDERED: POTASSIUM CHLORIDE 20 MEQ TABLET PO ONE (13:20)
[2018-12-11] MEDS ORDERED: MAGNESIUM SULFATE 16 MEQ in 0.9 % SODIUM CHLORIDE 100ML 100 ML IV ONE (13:20)
[2018-12-11 13:22] LABS: NTpro B-NATRIURETIC PEPTIDE < 5.00 pg/mL (<125)
== END 2018-12-11 14:35 | disposition short-term general hospital (02) ==
LOC: ER 12:45
DX: R00.1 Bradycardia, unspecified (principal); R55 Syncope and collapse; R61 Generalized hyperhidrosis; R11.2 Nausea with vomiting, unspecified; E11.9 Type 2 diabetes mellitus without complications; I10 Essential (primary) hypertension; F17.210 Nicotine dependence, cigarettes, uncomplicated
CPT/HCPCS: 80053; 83735; 83880; 84484; 85025; 85610; 85730; 93005; 93010; 96361; 96365; 99285; J7030

== ENCOUNTER 2019-07-17 23:52 | Observation (INO) | payer OTHER ==
[2019-07-18] MEDS ORDERED: ASPIRIN 81 MG CHEWABLE TABLET PO ONE (00:22)
[2019-07-18 00:32] LABS: ABSOLUTE NEUTROPHIL COUNT 9.69; BASO % 0.3 % (0-6); EOS % 2.4 % (0-6); GRAN % 55.9 % (47-80); HEMOGLOBIN 14.1 gm/dl (11.6-16.0); LYMPH % 33.8 % (16-45); MEAN CELL VOLUME 90.5 fl (81-97); MEAN PLATELET VOLUME 9.5 fl (7.4-10.4); MONO % 7.6 % (0-9); PLATELET COUNT 471 K/uL (130-400); RED BLOOD COUNT 4.86 M/uL (3.80-5.40); RED CELL DISTRIBUTION WIDTH 14.9 % (11.5-14.5); WHITE BLOOD COUNT W/O DIFF 17.3 K/uL (4.2-12.2)
[2019-07-18] MEDS: NITROGLYCERIN 0.4MG SL TABLET #25 BTL SL PRN ×3 (00:35→00:45)
[2019-07-18 00:41] LABS: BILIRUBIN,TOTAL < 0.20 mg/dL (0.2-1.0); BLOOD UREA NITROGEN 13 mg/dL (6-20); CREATININE 0.6 mg/dL (0.5-0.9); EST GLOMERULAR FILTRATION RATE > 60 mL/min; TOTAL PROTEIN 7.5 g/dL (6.6-8.7)
[2019-07-18 00:43] LABS: GLUCOSE,RANDOM 151 mg/dL (74-109)
[2019-07-18 00:46] LABS: ALKALINE PHOSPHATASE 97 U/L (35-104); ALT/SGPT 28 U/L (<33); AST/SGOT 18 U/L (10.0-35.0); CREATINE PHOSPHOKINASE 79 U/L (26-192)
[2019-07-18 00:48] LABS: NTpro B-NATRIURETIC PEPTIDE 65.86 pg/mL (<125)
--- NOTE | 2019-07-18 03:18 | Emergency Department Record ---
History of Present Illness - General Chief Complaint: Chest Pain Stated Complaint: CHEST PAIN Time Seen by Provider: 07/17/19 23:56 Source: Patient Mode of Arrival: Ambulatory Limitations: No limitations - History of Present Illness Initial Comments: pt has been having chest pain off and on for a week. it gets better with rest. 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 it radiates to her arms and neck. she has no n. she is sob. she smokes and her dad had a heart attack. she has no hx of heart problems exceptfor a pacer MD Complaint: Chest pain Onset/Timin -: Hour(s) Onset: During rest Pain Location: Substernal, Left chest, Right chest Pain Radiation: RUE, LUE, Neck Severity: Moderate Severity scale (1-10): 8 Quality: Aching, Dull Consistency: Constant Improves With: Nothing Worsens With: Movement Context: New medications Treatments Prior to Arrival: None - Related Data Home Medications Medication Instructions Recorded Confirmed Last Taken Alprazolam 1 tab PO DAILY 07/18/19 07/18/19 07/18/19 Previous Rx's Medication Instructions Recorded Albuterol Sulfate [Proair Hfa] 1 - 2 puff IH .EVERY 4-6 HOURS PRN 07/24/17 #1 inhaler Allergies Allergy/AdvReac Type Severity Reaction Status Date / Time No Known Drug Allergies Allergy Verified 12/11/18 12:58 Travel Screening - Travel/Exposure Within Last 30 Days Have you traveled within the last 30 days?: No - Travel/Exposure Within Last Year Have you traveled outside the [place] in the last year?: No - Additonal Travel Details Have you been exposed to anyone with a communicable illness?: No - Travel Symptoms Symptom Screening: None Review of Systems Reviewed: No additional complaints except as noted below Constitutional: Reports: As per HPI. Denies: Chills, Fever, Malaise, Night sweats, Weakness, Weight change Eyes: Reports: As per HPI. Denies: Eye discharge, Eye pain, Photophobia, Vision change ENT: Reports: As per HPI. Denies: Congestion, Dental pain, Ear pain, Epistaxis, Hearing loss, Throat pain Respiratory: Reports: As per HPI. Denies: Cough, Dyspnea, Hemoptysis, Stridor, Wheezes Cardiovascular: Reports: As per HPI. Denies: Arrhythmia, Chest pain, Dyspnea on exertion, Edema, Murmurs, Orthopnea, Palpitations, Paroxysmal nocturnal dyspnea, Rheumatic Fever, Syncope Endocrine: Reports: As per HPI. Denies: Fatigue, Heat or cold intolerance, Polydipsia, Polyuria Gastrointestinal: Reports: As per HPI. Denies: Abdominal pain, Constipation, Diarrhea, Hematemesis, Hematochezia, Melena, Nausea, Vomiting Genitourinary: Reports: As per HPI. Denies: Abnormal menses, Discharge, Dyspareunia, Dysuria, Frequency, Hematuria, Incontinence, Retention, Urgency Musculoskeletal: Reports: As per HPI. Denies: Arthralgia, Back pain, Gout, Joint swelling, Myalgia, Neck pain Skin: Reports: As per HPI. Denies: Bruising, Change in color, Change in hair/nails, Lesions, Pruritus, Rash Neurological: Reports: As per HPI. Denies: Abnormal gait, Confusion, Headache, Numbness, Paresthesias, Seizure, Tingling, Tremors, Vertigo, Weakness Psychiatric: Reports: As per HPI. Denies: Anxiety, Auditory hallucinations, Depression, Homicidal thoughts, Suicidal thoughts, Visual hallucinations Hematological/Lymphatic: Reports: As per HPI. Denies: Anemia, Blood Clots, Easy bleeding, Easy bruising, Swollen glands Past Medical History - SOCIAL HISTORY Smoking Status: Current every day smoker Alcohol Use: None Drug Use: Occasional Drug Use Detail:: Marijuana - RESPIRATORY Hx Respiratory Disorders: Yes Hx Bronchitis: Yes - CARDIOVASCULAR Hx Cardio Disorders: Yes Hx Hypertension: Yes Hx Pacemaker/Defib: Yes - NEURO Hx Neuro Disorders: Yes Hx Neuropathy: Yes - GI Hx GI Disorders: No - Hx Genitourinary Disorders: No - ENDOCRINE Hx Endocrine Disorders: Yes Hx Diabetes: Yes (medication) Hx Thyroid Disease: No - MUSCULOSKELETAL Hx Musculoskeletal Disorders: Yes Hx Osteoporosis: Yes - PSYCH Hx Psych Problems: Yes Hx Anxiety: Yes - HEMATOLOGY/ONCOLOGY Hx Hematology/Oncology Disorders: No Family Medical History Any Significant Family History?: No Hx Diabetes: Grandparents Hx Heart Disease: Father, Grandparents Physical Exam - General General Appearance: Alert, Oriented x3, Cooperative, Mild distress - Head Head exam: Normal inspection - Eye Eye exam: Normal appearance, PERRL, EOMI Pupils: Normal accommodation - ENT ENT exam: Normal exam, Mucous membranes moist, Normal external ear exam, Normal orophraynx Ear exam: Normal external inspection. negative: External canal tenderness Nasal Exam: Normal inspection. negative: Discharge, Sinus tenderness Mouth exam: Normal external inspection, Tongue normal Teeth exam: Normal inspection. negative: Dental caries Throat exam: Normal inspection. negative: Tonsillar erythema, Tonsillar exudate - Neck Neck exam: Normal inspection, Full ROM. negative: Tenderness - Respiratory Respiratory exam: Normal lung sounds bilaterally. negative: Respiratory distress - Cardiovascular Cardiovascular Exam: Regular rate, Normal rhythm, Normal heart sounds - GI/Abdominal GI/Abdominal exam: Soft, Normal bowel sounds. negative: Tenderness - Rectal Rectal exam: Deferred - exam: Deferred - Extremities Extremities exam: Normal inspection, Full ROM, Normal capillary refill. negative: Tenderness - Back Back exam: Reports: Normal inspection, Full ROM. Denies: Muscle spasm, Rash noted, Tenderness - Neurological Neurological exam: Alert, CN II-XII intact, Normal gait, Oriented X3 - Psychiatric Psychiatric exam: Normal affect, Normal mood - Skin Skin exam: Dry, Intact, Normal color, Warm Course Vital Signs 07/17/19 07/18/19 07/18/19 23:54 00:36 00:41 Pulse Rate [ Manager Engine ] Pulse Rate [ 96 H 100 H 105 H Pulse Ox Probe] Respiratory 20 18 Rate Blood Pressure 198/134 [Left Arm] Blood Pressure 149/112 117/89 [Right Arm] Pulse Ox 99 07/18/19 07/18/19 07/18/19 00:46 00:52 01:12 Pulse Rate [ 100 H Manager Engine ] Pulse Rate [ 102 H 102 H Pulse Ox Probe] Respiratory 18 16 20 Rate Blood Pressure [Left Arm] Blood Pressure 117/84 110/88 120/75 [Right Arm] Pulse Ox 96 07/18/19 02:15 Pulse Rate [ 90 Manager Engine ] Pulse Rate [ Pulse Ox Probe] Respiratory 20 Rate Blood Pressure [Left Arm] Blood Pressure 117/78 [Right Arm] Pulse Ox 94 L - Reevaluation(s) Reevaluation #1: 07/18/19 03:15 ntg made pain better. Medical Decision Making - Lab Data Result diagrams: 07/18/19 00:20 07/18/19 00:20 Lab Results 07/18/19 07/18/19 07/18/19 Range/Units 00:20 00:20 00:20 WBC 17.3 H (4.2-12.2) K/uL RBC 4.86 (3.80-5.40) M/uL Hgb 14.1 (11.6-16.0) gm/dl Hct 44.0 (35.0-47.0) % MCV 90.5 (81-97) fl MCH 29.0 (27-33) pg MCHC 32.0 (32-36) g/dl RDW 14.9 H (11.5-14.5) % Plt Count 471 H (130-400) K/uL MPV 9.5 (7.4-10.4) fl Gran % 55.9 (47-80) % Lymphocytes % 33.8 (16-45) % Monocytes % 7.6 (0-9) % Eosinophils % 2.4 (0-6) % Basophils % 0.3 (0-6) % Absolute Neutrophils 9.69 D-Dimer 0.31 (0-0.59) mg/L FEU Sodium 138 (136-145) mmol/L Potassium 4.0 (3.4-4.5) mmol/L Chloride 97 L (98-107) mmol/L Carbon Dioxide 27.0 (22-29) mmol/L Anion Gap 14.0 (7-16) BUN 13 (6-20) mg/dL Creatinine 0.6 (0.5-0.9) mg/dL Estimated GFR > 60 mL/min Random Glucose 151 H (74-109) mg/dL Calcium 9.9 (8.6-10.0) mg/dL Total Bilirubin < 0.20 L (0.2-1.0) mg/dL AST 18 (10.0-35.0) U/L ALT 28 (<33) U/L Alkaline Phosphatase 97 (35-104) U/L Creatine Kinase 79 (26-192) U/L Troponin T < 0.010 (0-0.010) ng/mL NT-Pro-B Natriuret Pep 65.86 (<125) pg/mL Total Protein 7.5 (6.6-8.7) g/dL Albumin 5.0 (4.0-5.0) g/dL Globulin 2.5 (1.4-4.8) gm/dL Albumin/Globulin Ratio 2.0 H (1.1-1.8) Disposition Disposition: Admit Clinical Impression: Chest pain Qualifiers: Chest pain type: unspecified Qualified Code(s): R07.9 - Chest pain, unspecified Disposition: Still a Patient at [facility] Decision to Admit: Admit from ER Decision to Admit Date: 07/18/19 Decision to Admit Time: 03:23 Quality - Quality Measures Quality Measures: N/A - Blood Pressure Screening Does Patient Have Any of the Following: No Blood Pressure Classification: Normal BP Reading Systolic Measurement: 117 Diastolic Measurement: 78 Screening for High Blood Pressure: < Normal BP, F/U Not Required > [G8783]
[2019-07-18] MEDS ORDERED: ALBUTEROL HFA 8 GM INHALER INH PRN (03:48)
[2019-07-18] MEDS ORDERED: ACETAMINOPHEN 500 MG TABLET PO PRN (03:48)
[2019-07-18] MEDS: TEMAZEPAM 15 MG CAPSULE PO PRN ×2 (04:37→21:29)
[2019-07-18 08:19] LABS: CKMB 6.9 ng/mL (<3.77)
[2019-07-18] MEDS: ASPIRIN 325 MG TAB ENTERIC-COATED PO SCH (09:51)
[2019-07-18] MEDS ORDERED: LISINOPRIL 5 MG TABLET PO SCH (10:00)
[2019-07-18] MEDS ORDERED: SEMAGLUTIDE 0.25 MG SQ SCH (10:00)
--- NOTE | 2019-07-18 11:11 | History & Physical ---
History of Present Illness - Date of Service Date of Service for History & Physical: 07/18/19 - History of Present Illness Admitting Diagnosis: chest pain History of Present Illness: Monique Miranda is a 54 y.o. F who presented to the ED on 07/17/19 with c/o intermittent chest pain x 1 week. Thought that it was d/t to recent steroid use that was prescribed in a [facility] visit. Reported that she had been lying down and woke up out of a " sleep" with chest pain and tightness across her chest into arms. 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 Had echocardiogram and carotid dopplars in December 2018 at [facility], denies ever having had a stress test. PCP: BILL Ortega ED Course -Vitals: BP 198/134, HR 96, RR 20, SpO2 99% on RA, T 97.6 -1st EKG: NSR with minimal ST elevation -2nd EKG: NSR with flattened T wave -Labs: WBC 17.3, D-dimer 0.31, Trop <0.010, Triglycerides 429 -Nitro given which improved symptoms 07/18/19 1130 Vitals: BP 121/80, HR 75, RR 16, SpO2 98% on RA, T 97.2 Pt lying in bed. Easily arousable. Oriented x 3. Denied having any chest pain or VICENTE. Reported that she felt better since receiving Nitro in ED. Labwork this a.m. showed elevated Trop. Case was discussed with Dr. Jackson and Dr. Oneal (cardiology) who stated if next Troponin was worse, to send to higher level of care. If relatively the same or better, to schedule a Cardiolite Stress test. Plan discussed with pt who verbalized understanding. Travel Screening - Travel/Exposure Within Last 30 Days Have you traveled within the last 30 days?: No - Travel/Exposure Within Last Year Have you traveled outside the [place] in the last year?: No - Additonal Travel Details Have you been exposed to anyone with a communicable illness?: No - Travel Symptoms Symptom Screening: Fatigue Review of Systems Reviewed: No additional complaints except as noted below Constitutional: Reports: As per HPI. Denies: Chills, Fever, Malaise, Night sweats, Weakness, Weight change Respiratory: Denies: Cough, Wheezes Cardiovascular: Denies: Chest pain, Dyspnea on exertion, Edema, Murmurs, Orthopnea, Palpitations, Paroxysmal nocturnal dyspnea Gastrointestinal: Denies: Abdominal pain, Constipation, Diarrhea, Nausea, Vomiting Neurological: Denies: Weakness Psychiatric: Reports: Anxiety Hematological/Lymphatic: Denies: Blood Clots Past Medical History - SOCIAL HISTORY Smoking Status: Current every day smoker Alcohol Use: None Drug Use: Occasional Drug Use Detail:: Marijuana - RESPIRATORY Hx Respiratory Disorders: Yes Hx Bronchitis: Yes - CARDIOVASCULAR Hx Cardio Disorders: Yes Hx Hypertension: Yes Hx Pacemaker/Defib: Yes - NEURO Hx Neuro Disorders: Yes Hx Neuropathy: Yes - GI Hx GI Disorders: No - Hx Genitourinary Disorders: No - ENDOCRINE Hx Endocrine Disorders: Yes Hx Diabetes: Yes (medication=Ozempic injection weekly) Hx Thyroid Disease: No - MUSCULOSKELETAL Hx Musculoskeletal Disorders: Yes Hx Osteoporosis: Yes - PSYCH Hx Psych Problems: Yes Hx Anxiety: Yes - HEMATOLOGY/ONCOLOGY Hx Hematology/Oncology Disorders: No Family Medical History Any Significant Family History?: Yes Hx Diabetes: Grandparents Hx Heart Disease: Father, Grandparents *Heart Comment: heart attack H&P Meds/Allergies - Allergies Allergies: Allergies Allergy/AdvReac Type Severity Reaction Status Date / Time No Known Drug Allergies Allergy Verified 12/11/18 12:58 - Home Medications Home Medications Medication Instructions Recorded Confirmed Last Taken Alprazolam 1 tab PO DAILY 07/18/19 07/18/19 07/17/19 Previous Rx's Medication Instructions Recorded Albuterol Sulfate [Proair Hfa] 1 - 2 puff IH .EVERY 4-6 HOURS PRN 07/24/17 #1 inhaler - Active Medications Active Medications: Current Medications Acetaminophen (Tylenol 500mg Tab) 1,000 mg PO Q6H PRN PRN Reason: PAIN - MILD(1-4)/FEVER Albuterol Sulfate (Ventolin Hfa) 1 - 2 puff INH .EVERY 4-6 HOURS PRN PRN Reason: DIFFICULTY IN BREATHING Aspirin (Ecotrin (Ec)) 325 mg PO DAILY [facility] Last Admin: 07/18/19 09:51 Dose: 325 mg Documented by: Atorvastatin Calcium (Lipitor) 40 mg PO QHS [facility] Lisinopril (Zestril) 5 mg PO DAILY [facility] Last Admin: 07/18/19 09:51 Dose: 5 mg Documented by: Nitroglycerin (Nitrostat 0.4mg) 0.4 mg SL Q5MIN PRN PRN Reason: CHEST PAIN Non-Formulary Medication (Semaglutide [Ozempic]) 0.25 mg SQ WEEKLY [facility] Temazepam (Restoril) 15 mg PO QHS PRN PRN Reason: INSOMNIA Last Admin: 07/18/19 04:37 Dose: 15 mg Documented by: Physical Exam - Vital Signs Vital Signs: Vital Signs - Last 24 Hrs Temp Pulse Pulse Resp BP BP Pulse Ox 07/18/19 08:54 75 16 07/18/19 07:50 97.2 F L 80 17 121/80 98 07/18/19 05:48 97.7 F 83 18 126/84 99 07/18/19 03:55 97.5 F L 82 18 125/82 94 L 07/18/19 03:12 97.6 F 07/18/19 03:11 82 20 99/67 94 L 07/18/19 02:15 90 20 117/78 94 L 07/18/19 01:12 100 H 20 120/75 96 07/18/19 00:52 102 H 16 110/88 07/18/19 00:46 102 H 18 117/84 07/18/19 00:41 105 H 18 117/89 07/18/19 00:36 100 H 149/112 07/17/19 23:54 96 H 20 198/134 99 - General General Appearance: Alert, Oriented x3, Cooperative, No acute distress Limitations: No limitations - Head Head exam: Normal inspection - Eye Eye exam: Normal appearance, PERRL, EOMI Pupils: Normal accommodation - ENT ENT exam: Normal exam, Mucous membranes moist, Normal orophraynx - Neck Neck exam: Normal inspection, Full ROM. negative: Tenderness - Respiratory Respiratory exam: Normal lung sounds bilaterally. negative: Accessory muscle use, Respiratory distress - Cardiovascular Cardiovascular Exam: Regular rate, Normal rhythm, Normal heart sounds - GI/Abdominal GI/Abdominal exam: Soft, Normal bowel sounds. negative: Tenderness - Rectal Rectal exam: Deferred - exam: Deferred - Extremities Extremities exam: Normal inspection, Full ROM, Normal capillary refill. negativ e: Pedal edema, Tenderness - Back Back exam: Reports: Normal inspection, Full ROM. Denies: Muscle spasm, Rash noted, Tenderness - Neurological Neurological exam: Alert, CN II-XII intact, Oriented X3 - Psychiatric Psychiatric exam: Normal affect, Normal mood - Skin Skin exam: Dry, Intact, Normal color, Warm Results - Labs Result Diagrams: 07/18/19 00:20 07/18/19 00:20 Labs Last 24 Hours: Laboratory Results - last 24 hr 07/18/19 07/18/19 07/18/19 00:20 00:20 00:20 WBC 17.3 H RBC 4.86 Hgb 14.1 Hct 44.0 MCV 90.5 MCH 29.0 MCHC 32.0 RDW 14.9 H Plt Count 471 H MPV 9.5 Gran % 55.9 Lymphocytes % 33.8 Monocytes % 7.6 Eosinophils % 2.4 Basophils % 0.3 Absolute Neutrophils 9.69 D-Dimer 0.31 Sodium 138 Potassium 4.0 Chloride 97 L Carbon Dioxide 27.0 Anion Gap 14.0 BUN 13 Creatinine 0.6 Estimated GFR > 60 Random Glucose 151 H Calcium 9.9 Total Bilirubin < 0.20 L AST 18 ALT 28 Alkaline Phosphatase 97 Creatine Kinase 79 CK-MB (CK-2) CK-MB (CK-2) Rel Index Troponin T < 0.010 NT-Pro-B Natriuret Pep 65.86 Total Protein 7.5 Albumin 5.0 Globulin 2.5 Albumin/Globulin Ratio 2.0 H Triglycerides Cholesterol LDL Cholesterol [place] VLDL Cholesterol HDL Cholesterol 07/18/19 07/18/19 07/18/19 00:20 07:45 07:45 WBC RBC Hgb Hct MCV MCH MCHC RDW Plt Count MPV Gran % Lymphocytes % Monocytes % Eosinophils % Basophils % Absolute Neutrophils D-Dimer Sodium Potassium Chloride Carbon Dioxide Anion Gap BUN Creatinine Estimated GFR Random Glucose Calcium Total Bilirubin AST ALT Alkaline Phosphatase Creatine Kinase 86 CK-MB (CK-2) 6.9 H CK-MB (CK-2) Rel Index 8.00 H Troponin T 0.181 H* NT-Pro-B Natriuret Pep Total Protein Albumin Globulin Albumin/Globulin Ratio Triglycerides 429 H Cholesterol 165 LDL Cholesterol [place] 74.0 VLDL Cholesterol HDL Cholesterol 45 VTE H&P Assessment - Risk for VTE Risk for VTE: Yes Risk Level: Low Risk Assessment Date: 07/18/19 Risk Assessment Time: 11:30 VTE Orders Placed or Will Be Placed: Yes Plan - Detailed Diagnosis and Plan (1) Chest pain Current Visit: Yes Status: Acute Qualifiers: Chest pain type: unspecified Qualified Code(s): R07.9 - Chest pain, unspecified Base Code: R07.9 - CHEST PAIN, UNSPECIFIED Comment: 07/18/19 -Intermittent CP x 1 week -Risk Factors: DM2, HTN, Tobacco use, High cholesterol, strong FMHx -Trops 0.010 --> 0.181 --> 0.087 -EKG: NSR with flattened T-wave -Telemetry monitoring -Continue Atorvastatin and ASA -Case discussed with Dr. Oneal -Cardiology Consult placed -Cardiolite stress test and echocardiogram ordered (2) Anxiety Current Visit: Yes Status: Acute Base Code: F41.9 - ANXIETY DISORDER, UNSPECIFIED Comment: 07/18/19 -Ordered home medication Prozac 20mg daily -Xanax 0.5mg PRN ordered (3) Full code status Current Visit: Yes Status: Acute Base Code: Z78.9 - OTHER SPECIFIED HEALTH STATUS Comment: 07/18/19 -Full code (4) DVT prophylaxis Current Visit: Yes Status: Acute Base Code: Z29.9 - ENCOUNTER FOR PROPHYLACTIC MEASURES, UNSPECIFIED Comment: 07/18/19 -Low risk -Nursing to encourage ambulation
[2019-07-18] MEDS: FLUOXETINE HCL 20 MG CAPSULE PO SCH (12:11)
[2019-07-18] MEDS ORDERED: LISINOPRIL 5 MG TABLET PO ONE (13:46)
[2019-07-18] MEDS ORDERED: HYDRALAZINE 20MG/ML VIAL IV PRN (13:48)
[2019-07-18 14:26] LABS: CKMB 7.7 ng/mL (<3.77)
[2019-07-18] MEDS: ALPRAZOLAM 0.25 MG TABLET PO PRN (14:27)
[2019-07-18 14:29] LABS: CKMB RELATIVE INDEX 8.1 % (0-4)
[2019-07-18 20:20] LABS: CKMB 6.7 ng/mL (<3.77)
[2019-07-18 20:33] LABS: CKMB RELATIVE INDEX 7.4 % (0-4)
[2019-07-18] MEDS ORDERED: ATORVASTATIN 20 MG TABLET PO SCH (22:00)
--- NOTE | 2019-07-19 07:13 | RADIOLOGY REPORT ---
EXAM: CHEST, TWO VIEWS HISTORY: DIFFICULTY IN BREATHING AND CHEST TIGHTNESS FOR ONE WEEK. TECHNIQUE: Upright PA and lateral views of the chest were obtained. Comparison: Two view chest radiographic examination dated 08/09/17. FINDINGS: A dual lead transvenous cardiac pacer is in place via the left subclavian approach with lead tips in the right atrium and right ventricle respectively. The heart is not enlarged and the pulmonary vasculature is nondilated. The lungs and pleural spaces are clear. Surgical anchors are again noted within the right humerus proximally. Degenerative changes of the visualized spine and shoulder girdles. IMPRESSION: 1. NO RADIOGRAPHIC EVIDENCE OF ACUTE CARDIOPULMONARY DISEASE. 2. A DUAL LEAD TRANSVENOUS CARDIAC STIMULATOR IS IN PLACE. JOB NUMBER: [id number] [facility]
[2019-07-19] MEDS: FLUOXETINE HCL 20 MG CAPSULE PO SCH (09:54)
[2019-07-19] MEDS: ASPIRIN 325 MG TAB ENTERIC-COATED PO SCH (09:55)
[2019-07-19] MEDS ORDERED: LISINOPRIL 10 MG TABLET PO SCH (10:00)
--- NOTE | 2019-07-19 10:05 | Discharge Summary ---
Providers Discharge Summary Date: 07/19/19 Date of admission: 07/18/19 03:43 Attending physician: CRISTIANO JACKSON Consults: Consult Orders 07/18/19 12:08 Consult - Cardiology NOW Consulting Provider: CRISTIANO JACKSON Physician Instructions: Reason For Exam: Elevated Cardiac Enzymes Does pt have current superintendent compressor stations?: Leela Physical Exam - Vital Signs Vital Signs: Vital Signs - Last 24 Hrs Temp Pulse Pulse Resp BP Pulse Ox 07/19/19 08:24 90 16 07/19/19 08:00 97.8 F 100 H 16 126/85 95 07/19/19 05:00 97.3 F L 89 16 134/95 99 07/18/19 21:00 97.8 F 96 H 16 138/91 98 07/18/19 17:00 97.9 F 84 16 120/85 94 L 07/18/19 13:45 98.0 F 96 H 15 150/90 99 - General General Appearance: Alert, Oriented x3, Cooperative, No acute distress Limitations: No limitations - Head Head exam: Normal inspection - Eye Eye exam: Normal appearance, PERRL, EOMI Pupils: Normal accommodation - ENT ENT exam: Normal exam, Mucous membranes moist, Normal orophraynx Ear exam: Normal external inspection. negative: External canal tenderness Nasal Exam: Normal inspection. negative: Discharge, Sinus tenderness Mouth exam: Normal external inspection, Tongue normal Teeth exam: Normal inspection. negative: Dental caries Throat exam: Normal inspection. negative: Tonsillar erythema, Tonsillar exudate - Neck Neck exam: Normal inspection, Full ROM. negative: Tenderness - Respiratory Respiratory exam: Normal lung sounds bilaterally. negative: Accessory muscle use, Respiratory distress - Cardiovascular Cardiovascular Exam: Regular rate, Normal rhythm, Normal heart sounds - GI/Abdominal GI/Abdominal exam: Soft, Normal bowel sounds. negative: Tenderness - Rectal Rectal exam: Deferred - exam: Deferred - Extremities Extremities exam: Normal inspection, Full ROM, Normal capillary refill. negative: Pedal edema, Tenderness - Back Back exam: Reports: Normal inspection, Full ROM. Denies: Muscle spasm, Rash noted, Tenderness - Neurological Neurological exam: Alert, CN II-XII intact, Oriented X3 - Psychiatric Psychiatric exam: Anxious, Normal affect - Skin Skin exam: Dry, Intact, Normal color, Warm Hospitalization - Hospitalization Admission Diagnosis: chest pain - Problem List/Discharge Diagnosis (1) Chest pain Status: Acute Discharge Diagnosis: Chest pain type: unspecified Qualified Code(s): R07.9 - Chest pain, unspecified Base Code: R07.9 - CHEST PAIN, UNSPECIFIED Comment: 07/19/19 -Trops 0.010 --> 0.181 --> 0.087 --> 0.068 -EKG today: NSR with inverted T wave, Dr. Oneal notified. -Echocardiogram: LVEF 35-40%, also evidence of Takotsubo cardiomyopathy -Cardiology saw pt and canceled stress and recommended t/f to higher level of care for cardiac cath (2) Anxiety Status: Acute Base Code: F41.9 - ANXIETY DISORDER, UNSPECIFIED Comment: 07/19/19 -Ordered home medication Prozac 20mg daily -Xanax 0.5mg PRN ordered (3) Full code status Status: Acute Base Code: Z78.9 - OTHER SPECIFIED HEALTH STATUS Comment: 07/19/19 -Full code (4) DVT prophylaxis Status: Acute Base Code: Z29.9 - ENCOUNTER FOR PROPHYLACTIC MEASURES, UNSPECIFIED Comment: 07/19/19 -Low risk -Nursing to encourage ambulation - Hospitalization Course Disposition: Acute Care Hospital Transfer Hospital Course: Monique Miranda is a 54 y.o. F who presented to the ED on 07/17/19 with c/o intermittent chest pain x 1 week. Thought that it was d/t to recent steroid use that was prescribed in a [facility] visit. Reported that she had been lying down and woke up out of a " sleep" with chest pain and tightness across her chest into arms. 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 Had echocardiogram and carotid dopplars in December 2018 at [facility], denies ever having had a stress test. PCP: BILL Ortega ED Course -Vitals: BP 198/134, HR 96, RR 20, SpO2 99% on RA, T 97.6 -1st EKG: NSR with minimal ST elevation -2nd EKG: NSR with flattened T wave -Labs: WBC 17.3, D-dimer 0.31, Trop <0.010, Triglycerides 429 -Nitro given which improved symptoms 07/18/19 1130 Vitals: BP 121/80, HR 75, RR 16, SpO2 98% on RA, T 97.2 Pt lying in bed. Easily arousable. Oriented x 3. Denied having any chest pain or VICENET. Reported that she felt better since receiving Nitro in ED. Labwork this a.m. showed elevated Trop. Case was discussed with Dr. Jackson and Dr. Oneal (cardiology) who stated if next Troponin was worse, to send to higher level of care. If relatively the same or better, to schedule a Cardiolite Stress test. Plan discussed with pt who verbalized understanding. 1000 Vitals: BP 126/85, HR 100, R 16, T 97.2, SpO2 98% RA Overnight, pt exhibited EKG changes: NSR with inverted T wave. Asymptomatic. Pt expressed anxiety and concern over upcoming cardiology consult and testing. Pt had echocardiogram which indicated Takotsubo Cardiomyopathy with LVEF of 35- 50%. Stress test was canceled by Cardiology and pt was transferred to [facility] for possible cardiac catheterization. Procedures: Imaging and X-Rays 07/18/19 01:02 CXR [CHEST 2 VIEWS] [RAD] Stat Cardiology Procedures 07/18/19 00:22 Doubler Operator NOW EKG NOW 07/18/19 03:48 EKG QDX2@0600 07/18/19 12:08 Cardiolite MPI w/exercise stre ONCE 07/18/19 12:10 Echo W/CF & Cardiac Doppler ONCE 07/19/19 08:13 EKG NOW Abnormal Labs: Abnormal Lab Results 07/18/19 07/18/19 07/18/19 Range/Units 00:20 00:20 00:20 WBC 17.3 H (4.2-12.2) K/uL RDW 14.9 H (11.5-14.5) % Plt Count 471 H (130-400) K/uL Chloride 97 L (98-107) mmol/L Random Glucose 151 H (74-109) mg/dL Total Bilirubin < 0.20 L (0.2-1.0) mg/dL CK-MB (CK-2) (<3.77) ng/mL CK-MB (CK-2) Rel Index (0-4) % Troponin T (0-0.010) ng/mL Albumin/Globulin Ratio 2.0 H (1.1-1.8) Triglycerides 429 H (<150) mg/dL 07/18/19 07/18/19 07/18/19 Range/Units 07:45 07:45 14:00 WBC (4.2-12.2) K/uL RDW (11.5-14.5) % Plt Count (130-400) K/uL Chloride (98-107) mmol/L Random Glucose (74-109) mg/dL Total Bilirubin (0.2-1.0) mg/dL CK-MB (CK-2) 6.9 H 7.7 H (<3.77) ng/mL CK-MB (CK-2) Rel Index 8.00 H 8.10 H (0-4) % Troponin T 0.181 H* 0.087 H (0-0.010) ng/mL Albumin/Globulin Ratio (1.1-1.8) Triglycerides (<150) mg/dL 07/18/19 Range/Units 20:01 WBC (4.2-12.2) K/uL RDW (11.5-14.5) % Plt Count (130-400) K/uL Chloride (98-107) mmol/L Random Glucose (74-109) mg/dL Total Bilirubin (0.2-1.0) mg/dL CK-MB (CK-2) 6.7 H (<3.77) ng/mL CK-MB (CK-2) Rel Index 7.40 H (0-4) % Troponin T 0.068 H (0-0.010) ng/mL Albumin/Globulin Ratio (1.1-1.8) Triglycerides (<150) mg/dL Condition at Discharge: (3) Guarded Discharge Medications - Discharge Medications Prescriptions: Lisinopril 10 mg PO DAILY #30 tab Home Medications: Ambulatory Orders Albuterol Sulfate [Proair Hfa] 1 - 2 puff IH .EVERY 4-6 HOURS PRN #1 inhaler 07/24/17 [Last Taken 07/17/19] Semaglutide [Ozempic] 0.25 mg SQ WEEKLY 12/11/18 [Last Taken 07/17/19] Alprazolam 0.5 tab PO DAILY PRN 07/18/19 [Last Taken 07/17/19] Acetaminophen [Tylenol 500Mg Tab] 1,000 mg PO Q6H PRN tablet 07/19/19 [Last Taken Unknown] Fluoxetine HCl 20 mg PO DAILY 07/19/19 [Last Taken Unknown] Fluoxetine HCl [Prozac] 20 mg PO DAILY capsule 07/19/19 [Last Taken Unknown] Lisinopril 10 mg PO DAILY #30 tab 07/19/19 [Last Taken Unknown] Temazepam [Restoril] 15 mg PO QHS PRN cap 07/19/19 [Last Taken Unknown] Discharge Plan - Discharge Instructions Quality Measures - Quality Measures Quality Measures: Documentation of Current Medications in Medical Record, Screening for High Blood Pressure and F/U Documented - Current Medications Quality Measure: Measure #130: Documentation of Current Medications Documentation of Current Medications: <Current Medications Documented/Reviewed> [G8427] - Blood Pressure Screening Quality Measure: Screening for High Blood Pressure and Follow-Up Documented Does Patient Have Any of the Following: Active Dx of HTN Blood Pressure Classification: Hypertensive Reading Systolic Measurement: 194 Diastolic Measurement: 140 Screening for High Blood Pressure: Patient Exclusion, Hx of HTN [G9744] - Elder Abuse Suspicion Index EASI Reference Information: Lisa DELUNA, Xenia C, Francisco D, Francine Lugo.Development and validation of a tool to assist physicians identification of elder abuse: The Elder Abuse Suspicion Index (EASI ). Journal of Elder Abuse and Neglect, 2008; 20 (3): 276-300.
[2019-07-19] MEDS: ALPRAZOLAM 0.25 MG TABLET PO PRN (10:54)
[2019-07-19] MEDS: NITROGLYCERIN 0.4MG SL TABLET #25 BTL SL PRN ×3 (13:39→13:54)
--- NOTE | 2019-07-19 15:11 | Consult ---
Consult Order Detail - Reason for Consult Consult Date: 07/19/19 (CARDIOLOGY) Consult Order Detail: chest pain and elevated troponin - Chief Complaint Chief Complaint: CHEST PAIN HPI Consult - History of Present Illness Admitting Diagnosis: chest pain History of Present Illness: Ms. Miranda is a 54-year-old female with past medical history of hypertension, type 2 diabetes mellitus, tobacco abuse, anxiety, and permanent pacemaker placement in December 2017 for second-degree AV block with episodes of syncope who presents to [facility] with complaint of chest pain. She has no known history of coronary artery disease. Echocardiogram in December 2018 demonstrated preserved LV EF of 55-60%. No previous stress test or cardiac catheterization. She reports a family medical history of premature CAD with both her father and grandfather having MIs in their 50s. For the last 2 weeks patient has been having intermittent chest pains. The chest pains have more than one occasion have woken her up from sleep. She describes the pain as a tightness that radiates across her chest into her arms. EKG demonstrated sinus rhythm with no acute ST or T wave changes. No acute cardiopulmonary process on chest x-ray. Troponin was initially less than 0.010 and then elevated to peak of 0.181 before trending back down to 0.08 and then 0.06. WBC count is elevated at 17. Hemoglobin is 14.1. D-dimer was within normal limits. CK-MB was elevated at 6.9, 7.7, and 6.7. Renal function is normal with a BUN of 13 and creatinine of 0.6. Total cholesterol is 165 with an LDL of 74, HDL 45, and triglycerides 429. Echocardiogram was ordered and demonstrates reduced LVEF of 35 to 40% with basal hypokinesis and apical hypokinesis consistent with Takotsubo cardiomyopathy. During my examination patient is extremely frustrated and anxious. On telemetry her heart rate increased to 140 bpm but was sinus. She was given 0.5 mg of Ativan to help with the anxiety. She also developed chest pain and was given 1 mg of morphine. ROS Constitutional: Reports: As per HPI. Denies: Chills, Fever, Malaise, Night sweats, Weakness, Weight change Eyes: Reports: As per HPI. Denies: Eye discharge, Eye pain, Photophobia, Vision change - ENT ENT: Reports: As per HPI. Denies: Congestion, Dental pain, Ear pain, Epistaxis, Hearing loss, Throat pain - Respiratory Respiratory: Denies: Cough, Wheezes - Cardiovascular Cardiovascular: Reports: Chest pain. Denies: Dyspnea on exertion, Edema, Murmurs, Orthopnea, Palpitations, Paroxysmal nocturnal dyspnea - Endocrine Endocrine: Reports: As per HPI. Denies: Fatigue, Heat or cold intolerance, Polydipsia, Polyuria - Gastrointestinal Gastrointestinal: Denies: Abdominal pain, Constipation, Diarrhea, Nausea, Vomiting - Genitourinary Genitourinary: Reports: As per HPI. Denies: Abnormal menses, Discharge, Dyspareunia, Dysuria, Frequency, Hematuria, Incontinence, Retention, Urgency - Musculoskeletal Musculoskeletal: Reports: As per HPI. Denies: Arthralgia, Back pain, Gout, Joint swelling, Myalgia, Neck pain - Skin Skin: Reports: As per HPI. Denies: Bruising, Change in color, Change in hair/nails, Lesions, Pruritus, Rash - Neurological Neurological: Denies: Weakness - Psychiatric Psychiatric: Reports: Anxiety - Hematological/Lymphatic Hematological/Lymphatic: Denies: Blood Clots Past Medical History - SOCIAL HISTORY Smoking Status: Current every day smoker Alcohol Use: None Drug Use: Occasional Drug Use Detail:: Marijuana - RESPIRATORY Hx Respiratory Disorders: Yes Hx Bronchitis: Yes - CARDIOVASCULAR Hx Cardio Disorders: Yes Hx Hypertension: Yes Hx Pacemaker/Defib: Yes - NEURO Hx Neuro Disorders: Yes Hx Neuropathy: Yes - GI Hx GI Disorders: No - Hx Genitourinary Disorders: No - ENDOCRINE Hx Endocrine Disorders: Yes Hx Diabetes: Yes (medication=Ozempic injection weekly) Hx Thyroid Disease: No - MUSCULOSKELETAL Hx Musculoskeletal Disorders: Yes Hx Osteoporosis: Yes - PSYCH Hx Psych Problems: Yes Hx Anxiety: Yes - HEMATOLOGY/ONCOLOGY Hx Hematology/Oncology Disorders: No Family Medical History Any Significant Family History?: Yes Hx Diabetes: Grandparents Hx Heart Disease: Father, Grandparents *Heart Comment: heart attack H&P Meds - Home Medications and Allergies Home Medications Medication Instructions Recorded Confirmed Last Taken Alprazolam 0.5 tab PO DAILY PRN 07/18/19 07/19/19 07/17/19 Fluoxetine HCl 20 mg PO DAILY 07/19/19 07/19/19 Unknown Previous Rx's Medication Instructions Recorded Albuterol Sulfate [Proair Hfa] 1 - 2 puff IH .EVERY 4-6 HOURS PRN 07/24/17 #1 inhaler Acetaminophen [Tylenol 500Mg Tab] 1,000 mg PO Q6H PRN tablet 07/19/19 Fluoxetine HCl [Prozac] 20 mg PO DAILY capsule 07/19/19 Lisinopril 10 mg PO DAILY #30 tab 07/19/19 Temazepam [Restoril] 15 mg PO QHS PRN cap 07/19/19 Allergies Allergy/AdvReac Type Severity Reaction Status Date / Time No Known Drug Allergies Allergy Verified 12/11/18 12:58 Physical Exam - Vital Signs Vital Signs: Vital Signs - Last 24 Hrs Temp Pulse Pulse Resp BP Pulse Ox 07/19/19 13:50 124 H 20 194/140 98 07/19/19 08:24 90 16 07/19/19 08:00 97.8 F 100 H 16 126/85 95 07/19/19 05:00 97.3 F L 89 16 134/95 99 07/18/19 21:00 97.8 F 96 H 16 138/91 98 07/18/19 17:00 97.9 F 84 16 120/85 94 L - General General Appearance: Alert, Oriented x3, Cooperative, No acute distress Limitations: No limitations - Head Head exam: Normal inspection - Eye Eye exam: Normal appearance, PERRL, EOMI Pupils: Normal accommodation - ENT ENT exam: Normal exam, Mucous membranes moist, Normal orophraynx Ear exam: Normal external inspection. negative: External canal tenderness Nasal Exam: Normal inspection. negative: Discharge, Sinus tenderness Mouth exam: Normal external inspection, Tongue normal Teeth exam: Normal inspection. negative: Dental caries Throat exam: Normal inspection. negative: Tonsillar erythema, Tonsillar exudate - Neck Neck exam: Normal inspection, Full ROM. negative: Tenderness - Respiratory Respiratory exam: Normal lung sounds bilaterally. negative: Accessory muscle use, Respiratory distress - Cardiovascular Cardiovascular Exam: Regular rate, Normal rhythm, Normal heart sounds - GI/Abdominal GI/Abdominal exam: Soft, Normal bowel sounds. negative: Tenderness - Rectal Rectal exam: Deferred - exam: Deferred - Extremities Extremities exam: Normal inspection, Full ROM, Normal capillary refill. negative: Pedal edema, Tenderness - Back Back exam: Reports: Normal inspection, Full ROM. Denies: Muscle spasm, Rash noted, Tenderness - Neurological Neurological exam: Alert, CN II-XII intact, Oriented X3 - Psychiatric Psychiatric exam: Agitated, Anxious - Skin Skin exam: Dry, Intact, Normal color, Warm Results - Labs Result Diagrams: 07/18/19 00:20 07/18/19 00:20 Labs Last 24 Hours: Laboratory Results - last 24 hr 07/18/19 07/18/19 14:00 20:01 Creatine Kinase Cancelled 90 CK-MB (CK-2) 6.7 H CK-MB (CK-2) Rel Index 7.40 H Troponin T 0.068 H - Imaging and Cardiology EKG Status: Image reviewed Additional Comments: sinus rhythm, no acute ST-T changes CXR Status: Report reviewed Additional Comments: no acute cardiopulmonary process Assessment and Plan - Disposition Disposition: 1. Chest Pain 2. Elevated Troponin 3. Cardiomyopathy 4. Hypertension 5. Hyperlipidemia 6. 2:1 AV Block s/p PPM 12/14/18 Patient is a 54-year-old female with past medical history of hypertension, hyperlipidemia, type 2 diabetes mellitus, tobacco abuse, family history of premature CAD, and 2-1 AV block status post PPM 12/14/2018 who presented to [facility] with complaint of chest pain. Initial troponin was within normal limits but elevated to 0.18. This has since trended down 2.06. CKMB also elevated. Renal function stable. EKG was without ST or T wave changes. Echocardiogram demonstrated reduced LVEF of 35 to 40% with basal hypokinesis and apical hypokinesis. This could be consistent with takotsubo cardiomyopathy. Given the elevated troponin and the changes on echocardiogram we are recommending transfer to [facility] for cardiac catheterization for further ischemic evaluation. Patient does not have any history of coronary artery disease but does have risk factors including hypertension, hyperlipidemia, tobacco abuse, and family history. Patient was very anxious and distraught about the situation but after discussing with her significant other agreed to be transferred. Assessment and plan were discussed with Dr. Oneal who agrees with the above.
[2019-07-19] MEDS ORDERED: MORPHINE SULFATE 5 MG/ML VIAL IVP ONE (15:28)
== END 2019-07-19 14:05 | disposition short-term general hospital (02) ==
LOC: ER 23:52 → MEDSURG 07-18 03:43
PROVIDERS: ADMIT Internal Medicine; ATTEND Internal Medicine
DX: R07.9 Chest pain, unspecified (principal); R06.02 Shortness of breath; F41.9 Anxiety disorder, unspecified; I10 Essential (primary) hypertension; E11.9 Type 2 diabetes mellitus without complications; G62.9 Polyneuropathy, unspecified; M81.0 Age-related osteoporosis without current pathological fracture; Z95.0 Presence of cardiac pacemaker; F17.210 Nicotine dependence, cigarettes, uncomplicated
CPT/HCPCS: 99285 ×2; 82550; 85025; 82553; 80053; 80061; 84484; 85379; 83880; 71046; 93005 ×3; 93010; 93306; G0378 ×2; J3490; 99217; 99220